=== PATIENT | female | born 1950 | race Caucasian/White ===

== ENCOUNTER 2018-09-18 07:25 | Day surgery (SDC) | payer OTHER, SELFPAY ==
--- NOTE | 2018-09-17 17:46 | POEE_ITS ---
History of Present Illness Chief Complaint: Progressive decreased vision, left eye Narrative: The patient is a 68-year old lady with history of myopia who has noted progressive decreased vision in both eyes at both distance and near. She notes foggy vision and significant difficulty driving and reading. On exami [facility] she was noted to have bilateral nuclear and cortical cataracts with posterior subcapsular cataract of the left eye as well. Visual acuity measured 20/25 in the left eye with her contact lenses, but she had significant glare disability. The option of cataract surgery was offered to the patient and she wished to proceed. NOTE: The Chief Complaint, HPI, Past Medical History, Past Surgical History, Family History, Social History, Medications, and complete Ophthalmic Exam with detailed Assessment and Plan have already been documented in the patient's outpatient ophthalmic record and are not covered again in detail here. PFS Medical History Cortical cataract of left eye (Acute) Nuclear sclerotic cataract of left eye (Acute) Posterior subcapsular age-related cataract of left eye (Acute) Heart murmur (Acute) Hyperlipemia (Acute) Sciatica (Acute) Alcohol abuse (Chronic) Cataract (Chronic) Hypertensive disorder (Chronic) Osteoarthritis (Chronic) Surgical History Hx of colonoscopy (Chronic) Social History Smoking/Tobacco Use Status: Former Tobacco Use Drug use: Never Do you feel safe in your relationship?: Yes Meds Home Medications Medication Instructions Recorded Confirmed Type aspirin [Aspir-81] 81 mg PO Q3D 05/13/17 09/13/18 History cholecalciferol (vitamin D3) 5,000 unit PO DAILY 05/13/17 09/13/18 History coQ10 (ubiquinol) 100 mg PO DAILY 05/13/17 09/13/18 History felodipine 5 mg PO DAILY 05/13/17 09/13/18 History irbesartan [Avapro] 300 mg PO DAILY 05/13/17 09/13/18 History rosuvastatin [Crestor] 5 mg PO QPM 05/13/17 09/13/18 History vitamin B complex 1 ea PO DAILY 05/13/17 09/13/18 History calcium-magnesium 2 tab PO BID 09/12/18 09/13/18 History milk thistle seed extract 400 mg PO DAILY 09/12/18 09/13/18 History omega 1-hdo-rda-fish oil [Fish Oil] 2 cap PO BID 09/12/18 09/13/18 History Allergies Allergy/AdvReac Type Severity Reaction Status Date / Time No Known Allergies Allergy Unverified 09/12/18 12:11 Exam OCULAR EXAM:: Most recent ocular examination revealed corrected visual acuity of 20/25 in each eye. Intraocular pressure is 14 OS, 15 OD. Extraocular motility is normal. Pupils equal, round, and reactive without afferent pupillary defect slit-lamp examination is significant for pupils dilating to 6.5 mm OU. 1-2+ nuclear with 1+ cortical cataract OD. 2+ nuclear with 2-3+ cortical and 1+ posterior subcapsular cataract OS. Dilated funduscopic examination shows disc cupping of 0.25 OD 0.3 OS. The optic nerves are tilted. Optic disc drusen are present OU. The retinal vasculature is normal. There are some macular pigmentary changes OU. Peripheral retina and vitreous is normal OU. BRIGHTNESS ACUITY TESTING (BAT):: Brightness acuity testing of the left eye off is 20/25. Low is 20/30. Medium is 20/50. High is 20/60. Assessment and Plan (1) Posterior subcapsular age-related cataract of left eye: Current visit: No Status: Acute Assessment: Visually significant cataract, left eye. Plan: Cataract extraction with intraocular lens implantation, left eye (2) Nuclear sclerotic cataract of left eye: Current visit: No Status: Acute Assessment: Visually significant cataract, left eye. Plan: Cataract extraction with intraocular lens implantation, left eye (3) Cortical cataract of left eye: Current visit: No Status: Acute Assessment: Visually significant cataract, left eye. Plan: Cataract extraction with intraocular lens implantation, left eye Note: NOTE:: The details of the planned surgery, including the risks, indications,limitations,expectations,outcome and possible complications were explained to the patient. The patient understands the complications including, but not limited to: infection, hemorrhage, posterior dislocation of the lens or nuclear fragments which may require the intervention of a vitreoretinal surgeon, possible loss of the eye, or from anesthetic complications. The patient has been made aware of the option of not having surgery, that vision following surgery may not be equal to that prior to surgery, and that the planned surgery may not achieve the intended results. Following this discussion, which the patient appeared to understand, the patient wishes to proceed with cataract surgery with lens implantation of the affected eye to improve and maximize vision.
--- NOTE | 2018-09-17 17:46 | W.PM.DSUDISC ---
Discharge Plan Disposition Patient Disposition: HOME Condition: Stable Discharge Details Attending Provider: Hardeep Jackman Primary Care Provider: RAKESH BLACK Home Meds and New Rx's Prescriptions: No Action felodipine 2.5 MG tablet extended release 24 hr 5 mg PO DAILY RF: 0 aspirin [Aspir-81] 81 MG tablet,delayed release (DR/EC) 81 mg PO Q3D RF: 0 cholecalciferol (vitamin D3) 5,000 UNIT capsule 5,000 unit PO DAILY RF: 0 irbesartan [Avapro] 300 MG tablet 300 mg PO DAILY RF: 0 vitamin B complex 1 EACH capsule 1 ea PO DAILY RF: 0 rosuvastatin [Crestor] 5 MG tablet 5 mg PO QPM RF: 0 coQ10 (ubiquinol) 100 MG capsule 100 mg PO DAILY RF: 0 calcium-magnesium 300-300 mg Tablet 2 tab PO BID RF: 0 omega 9-qog-tca-fish oil [Fish Oil] 1,000 mg (120 mg-180 mg) Capsule 2 cap PO BID RF: 0 milk thistle seed extract 200 mg Capsule 400 mg PO DAILY RF: 0 Discharge Instructions Stand Alone Forms: Post-op Topical Cataract, Ish Sheffield (DSU) Discharge Orders Discharge Orders: Discharge Order (Routine); Ordered 09/18/18 Ordered By: Hardeep Jackman DS: Diagnosis Discharge Diagnosis (1) Posterior subcapsular age-related cataract of left eye: Status: Resolved (2) Nuclear sclerotic cataract of left eye: Status: Resolved (3) Cortical cataract of left eye: Status: Resolved (4) Status post cataract extraction and insertion of intraocular lens of left eye: Status: Chronic
--- NOTE | 2018-09-17 17:47 | W.PM.OP ---
Date of service: 09/18/18 Time of Service: 09:41 Operative Note PRE-OP DIAGNOSIS: Cataract, left eye POST-OP DIAGNOSIS: same PROCEDURE: Cataract extraction using phacoemulsification with intraocular lens implant, left eye SURGEON: Hardeep Jackman ANESTHESIA: MAC and local (sub-tenon's anesthetic infiltration) PATHOLOGY: none sent COMPLICATIONS: None Patient was transported to: same day Patient's condition: stable Implants: Chapito [employer] Vision / [employer] Tecnis ZCB00 Indications: Progressive decreased vision due to cataract, left eye Procedure Description: CATARACT SURGERY OPERATIVE REPORT PREOPERATIVE DIAGNOSIS: Nuclear/cortical/posterior subcapsular cataract, left eye POSTOPERATIVE DIAGNOSIS: Same OPERATION: Cataract extraction using phacoemulsification with posterior chamber intraocular lens implant, left eye. IOL: IOL Straightener And Aligner/Model: J[employer]J Vision / [employer] Tecnis ZCB00 IOL Power: + 13.50 diopters IOL Serial Number: [id number] Optic Diameter: 6.0mm Haptic/Overall Diameter: 13.0mm PHACO INFO: Onesimo [employer] Solutionsurion Vision System with OZil and Active Fluidics Cumulative Dispersed Energy (CDE): 7.27 seconds SURGEON: Hardeep Jackman MD, FAUSTO ANESTHESIA: Monitored Anesthesia Care (MAC), with local sub-tenon's anesthetic infiltration COMPLICATIONS: None SPECIMENS: None INDICATIONS FOR PROCEDURE: The patient is a 68-year-old lady with history of myopia who has developed symptomatic bilateral nuclear cortical and posterior subcapsular cataracts. She is significantly symptomatic that she desires cataract surgery and attempt to improve and maximize her vision. PROCEDURE: The correct surgical eye was identified and marked as the left eye and the pupil was dilated in the preoperative area using mydriatics and cycloplegics. The dilated pupil size was 7.0 mm. Oral sedation was administered in the form of an Imprimis MKO Melt (midazolam 3mg/ketamine 25mg/ondansetron 2mg). The patient was brought to the operating room where cardiopulmonary monitoring was instituted and surgical time-out was performed, confirming the correct operative eye and IOL power. Topical anesthesia was administered and ophthalmic povidone-iodine 5% was instilled into the conjunctival fornices. Lidocaine gel was applied to the cornea and the tammie-ocular area was prepped with Betadine 10% solution and draped in the usual sterile fashion for intraocular surgery, including an aperture drape. A Tegaderm transparent film dressing was cut in half and used to cover the lashes and lid margins. Care was taken to sequester the lashes and lid margins under the Tegaderm dressing. A lid speculum was placed between the lids of the operative eye and the Santiago-Jory operating microscope was maneuvered into position. Liza scissors were then used to make a conjunctival buttonhole approximately 6mm posterior to the limbus in the inferonasal quadrant. Blunt dissection was carried out to expose bare sclera, and a blunt-tipped sub-tenon?s anesthesia cannula was introduced and passed posteriorly along the globe where non-preserved plain lidocaine was injected into posterior sub-Tenon?s space. A sideport knife was used to make a paracentesis port superior/superiortemporal, and the anterior chamber was filled with Healon GV. A 2.4mm keratome knife was used to create a half-thickness groove at the limbus and then to construct a three-plane near-clear corneal tunnel extending 2.0mm into clear cornea in the temporal position. . A flap was raised on the anterior capsule and capsulorhexis forceps were used to complete a continuous curvilinear capsulorhexis of 5.5 mm. Balanced salt solution was then used to perform cortical cleaving hydrodissection and nuclear hydrodelineation until the lens could be freely rotated within the capsular bag. The lens nucleus was then disassembled and removed within the capsular bag and iris plane using phacoemulsification. Residual cortical material was removed using the 45-degree angled silicone I/A tip with 0.3mm port. The posterior capsule was carefully polished to remove as much residual lens epithelial cells as safely possible. The capsular bag was then inflated and the anterior chamber deepened with viscoelastic. The lens implant described above was inserted into the capsular bag using the [employer] [place] Injector. A Kuglen hook was used to dial the IOL into position. Residual viscoelastic was then removed first from posterior to the IOL, then from the anterior chamber using the I/A handpiece. The lens implant was noted to center nicely within the capsular bag. The incisions were stromally hydrated, and the anterior chamber was reformed using BSS. Then 0.4cc of moxifloxacin 1.5mg/ml were injected into the capsular bag and anterior chamber. The incisions were checked with a Weck spear and found to be secure. Several drops of ophthalmic povidone-iodine 5% were then applied to the eye followed by two drops of Imprimis combination gatifloxacin/dexamethasone solution. The drapes were removed and a clear plastic protective eye shield was placed over the eye. The patient was then returned to [facility] Day Surgery in stable condition.
[2018-09-18 07:45] VITALS: BP 156/82; PULSE 77; RESP 16; TEMP 36.9; O2SAT 99
[2018-09-18] MEDS: Tetracaine 0.5% 4 ML BTL OS ×4 (07:48→09:10)
[2018-09-18] MEDS: Tropicam./Phenyleph. (1/2.5%) 5 ML BTL OS ×3 (07:48→07:58)
[2018-09-18 07:50] VITALS: BP 156/82; PULSE 77; RESP 16; TEMP 36.9; O2SAT 99
[2018-09-18] MEDS: Lidocaine 2% Jelly 6 ML SYR (09:10)
[2018-09-18] MEDS: Povidone-Iodine Ophth 30 ML BTL ×2 (09:10→09:35)
[2018-09-18] MEDS: Balanced Salt Soln.-PLUS 500 ML BAG (09:17)
[2018-09-18] MEDS: Lidocaine 1% Pres-Free 5 ML VIAL (09:17)
[2018-09-18 10:05] VITALS: BP 134/78; PULSE 70; RESP 16; TEMP 36.4; O2SAT 97
== END 2018-09-18 10:15 | disposition home or self-care (01) ==
LOC: SUR 07:26
PROVIDERS: PCP Internal Medicine; Visit Provider Ophthalmology
PROC: (CPT 66984; principal; 2018-09-18 09:30)
DX: H25.812 Combined forms of age-related cataract, left eye (principal); I10 Essential (primary) hypertension
CPT/HCPCS: 66984; V2632

== ENCOUNTER 2018-10-02 06:46 | Day surgery (SDC) | payer OTHER, SELFPAY ==
--- NOTE | 2018-10-01 15:30 | W.PIPPEYE ---
History of Present Illness Chief Complaint: Progressive decreased vision, right eye Narrative: The patient is a 68-year old lady who presented with complaints of progressive decreased vision in both eyes at both distance and near. She notes foggy vision, left eye worse than right and significant difficulty with glare, particularly driving at night. On examination she was noted to have moderate bilateral nuclear cataracts with cortical cataracts as well, left eye worse than right. She underwent cataract surgery in the left eye on . Postoperatively she has regained uncorrected visual acuity of 20/20 in the left eye. She now presents for cataract surgery in the right eye. NOTE: The Chief Complaint, HPI, Past Medical History, Past Surgical History, Family History, Social History, Medications, and complete Ophthalmic Exam with detailed Assessment and Plan have already been documented in the patient's outpatient ophthalmic record and are not covered again in detail here. PFSH Medical History Heart murmur (Acute) Hyperlipemia (Acute) Sciatica (Acute) Alcohol abuse (Chronic) Cataract (Chronic) Hypertensive disorder (Chronic) Osteoarthritis (Chronic) Cortical cataract of left eye (Resolved) Nuclear sclerotic cataract of left eye (Resolved) Posterior subcapsular age-related cataract of left eye (Resolved) Surgical History Status post cataract extraction and insertion of intraocular lens of left eye (Chronic 09/18/18) Hx of colonoscopy (Chronic) Social History Smoking/Tobacco Use Status: Former Tobacco Use Drug use: Never Do you feel safe in your relationship?: Yes Meds Home Medications Medication Instructions Recorded Confirmed Type aspirin [Aspir-81] 81 mg PO Q3D 05/13/17 09/18/18 History cholecalciferol (vitamin D3) 5,000 unit PO DAILY 05/13/17 09/18/18 History coQ10 (ubiquinol) 100 mg PO DAILY 05/13/17 09/18/18 History felodipine 5 mg PO DAILY 05/13/17 09/18/18 History irbesartan [Avapro] 300 mg PO DAILY 05/13/17 09/18/18 History rosuvastatin [Crestor] 5 mg PO QPM 05/13/17 09/18/18 History vitamin B complex 1 ea PO DAILY 05/13/17 09/13/18 History calcium-magnesium 2 tab PO BID 09/12/18 09/18/18 History milk thistle seed extract 400 mg PO DAILY 09/12/18 09/18/18 History omega 6-rpl-waq-fish oil [Fish Oil] 2 cap PO BID 09/12/18 09/18/18 History Allergies Allergy/AdvReac Type Severity Reaction Status Date / Time No Known Allergies Allergy Unverified 09/18/18 07:42 Exam OCULAR EXAM:: Most recent ocular examination is significant for corrected visual acuity of 20/30 in the right eye, 20/20 in the left eye. Intraocular pressure is 15 OU. Extraocular motility is normal. Pupils equal, round, and reactive without afferent pupillary defect slit-lamp examination is significant for pupils dilating to 6.5 mm OU. 1-2+ nuclear with 1+ cortical cataract in the right eye. Well-positioned PCIOL in the left eye with clear posterior capsule. Dilated funduscopic examination reveals tilted optic nerves with drusen. The retinal vasculature is normal. Mild macular pigmentary changes are present OU. Peripheral retina and vitreous is normal OU. BRIGHTNESS ACUITY TESTING (BAT):: Brightness acuity testing of the right eye off is 20/30. Low is 20/25. Medium is 20/25. High is 20/30. Assessment and Plan (1) Nuclear sclerotic cataract of right eye: Current visit: No Status: Acute Assessment: Visually significant cataract, right eye. Plan: Cataract extraction with intraocular lens implantation, right eye (2) Cortical cataract of right eye: Current visit: No Status: Acute Assessment: Visually significant cataract, right eye. Plan: Cataract extraction with intraocular lens implantation, right eye Note: NOTE:: The details of the planned surgery, including the risks, indications,limitations,expectations,outcome and possible complications were explained to the patient. The patient understands the complications including, but not limited to: infection, hemorrhage, posterior dislocation of the lens or nuclear fragments which may require the intervention of a vitreoretinal surgeon, possible loss of the eye, or from anesthetic complications. The patient has been made aware of the option of not having surgery, that vision following surgery may not be equal to that prior to surgery, and that the planned surgery may not achieve the intended results. Following this discussion, which the patient appeared to understand, the patient wishes to proceed with cataract surgery with lens implantation of the affected eye to improve and maximize vision.
[2018-10-02 07:09] VITALS: BP 142/75; PULSE 77; RESP 18; TEMP 36.5; O2SAT 97
[2018-10-02] MEDS: Tropicam./Phenyleph. (1/2.5%) 5 ML BTL OD ×3 (07:18→07:25)
[2018-10-02] MEDS: Tetracaine 0.5% 4 ML BTL OD ×4 (07:18→08:25)
[2018-10-02] MEDS: Povidone-Iodine Ophth 30 ML BTL (08:25)
[2018-10-02] MEDS: Lidocaine 2% Jelly 6 ML SYR (08:25)
[2018-10-02] MEDS: Balanced Salt Soln.-PLUS 500 ML BAG (08:30)
[2018-10-02] MEDS: Lidocaine 1% Pres-Free 5 ML VIAL (08:31)
--- NOTE | 2018-10-02 08:53 | W.PM.DSUDISC ---
Discharge Plan Disposition Patient Disposition: HOME Condition: Stable Discharge Details Attending Provider: Hardeep Jackman Primary Care Provider: RAKESH BLACK Home Meds and New Rx's Prescriptions: No Action felodipine 2.5 MG tablet extended release 24 hr 5 mg PO DAILY RF: 0 aspirin [Aspir-81] 81 MG tablet,delayed release (DR/EC) 81 mg PO Q3D RF: 0 cholecalciferol (vitamin D3) 5,000 UNIT capsule 5,000 unit PO DAILY RF: 0 irbesartan [Avapro] 300 MG tablet 300 mg PO DAILY RF: 0 vitamin B complex 1 EACH capsule 1 ea PO DAILY RF: 0 rosuvastatin [Crestor] 5 MG tablet 5 mg PO QPM RF: 0 coQ10 (ubiquinol) 100 MG capsule 100 mg PO DAILY RF: 0 calcium-magnesium 300-300 mg Tablet 2 tab PO BID RF: 0 omega 9-dwf-dtn-fish oil [Fish Oil] 1,000 mg (120 mg-180 mg) Capsule 2 cap PO BID RF: 0 milk thistle seed extract 200 mg Capsule 400 mg PO DAILY RF: 0 Discharge Instructions Stand Alone Forms: Post-op Topical Cataract, Ish Sheffield ([facility]U) Discharge Orders Discharge Orders: Discharge Order (Routine); Ordered 10/02/18 Ordered By: Hardeep Jackman DS: Diagnosis Discharge Diagnosis (1) Nuclear sclerotic cataract of right eye: Status: Resolved (2) Cortical cataract of right eye: Status: Resolved (3) Status post cataract extraction and insertion of intraocular lens of right eye: Status: Chronic
--- NOTE | 2018-10-02 08:55 | W.PM.OP ---
Date of service: 10/02/18 Time of Service: 08:55 Operative Note PRE-OP DIAGNOSIS: Cataract, right eye PROCEDURE: Cataract extraction using phacoemulsification with intraocular lens implant, right eye SURGEON: Hardeep Jackman ANESTHESIA: MAC and local (sub-tenon's anesthetic infiltration) ESTIMATED BLOOD LOSS: 0 PATHOLOGY: none sent COMPLICATIONS: None Patient was transported to: same day Patient's condition: stable Implants: Chap[employer] and [employer] Vision / [employer] Tecnis ZCB00 intraocular lens Indications: Progressive decreased vision due to cataract, right eye Procedure Description: CATARACT SURGERY OPERATIVE REPORT PREOPERATIVE DIAGNOSIS: Nuclear/cortical cataract, right eye POSTOPERATIVE DIAGNOSIS: Same OPERATION: Cataract extraction using phacoemulsification with posterior chamber intraocular lens implant, right eye. IOL: IOL Generation Technologist/Model: J[employer]J [employer] / [employer] Tecnis ZCB00 IOL Power: + 13.50 diopters IOL Serial Number: [id number] Optic Diameter: 6.0mm Haptic/Overall Diameter: 13.0mm PHACO INFO: Onesimo[employer]un Yun[employer] Vision System with OZil and Active Fluidics Cumulative Dispersed Energy (CDE): 5.57 seconds SURGEON: Hardeep Jackman MD, FAUSTO ANESTHESIA: Monitored Anesthesia Care (MAC), with local sub-tenon's anesthetic infiltration COMPLICATIONS: None SPECIMENS: None INDICATIONS FOR PROCEDURE: The patient is a 68-year-old lady with history of moderate to high myopia who has noted progressive decreased vision in both eyes at both distance and near. She has already undergone cataract surgery in the left eye and is doing well postoperatively. She now presents for cataract surgery in the right eye. PROCEDURE: The correct surgical eye was identified and marked as the right eye and the pupil was dilated in the preoperative area using mydriatics and cycloplegics. The dilated pupil size was 7.0 mm. Oral sedation was administered in the form of an Imprimis MKO Melt (midazolam 3mg/ketamine 25mg/ondansetron 2mg). The patient was brought to the operating room where cardiopulmonary monitoring was instituted and surgical time-out was performed, confirming the correct operative eye and IOL power. Topical anesthesia was administered and ophthalmic povidone-iodine 5% was instilled into the conjunctival fornices. Lidocaine gel was applied to the cornea and the tammie-ocular area was prepped with Betadine 10% solution and draped in the usual sterile fashion for intraocular surgery, including an aperture drape. A Tegaderm transparent film dressing was cut in half and used to cover the lashes and lid margins. Care was taken to sequester the lashes and lid margins under the Tegaderm dressing. A lid speculum was placed between the lids of the operative eye and the Santiago-Jory operating microscope was maneuvered into position. Liza scissors were then used to make a conjunctival buttonhole approximately 6mm posterior to the limbus in the inferonasal quadrant. Blunt dissection was carried out to expose bare sclera, and a blunt-tipped sub-tenon?s anesthesia cannula was introduced and passed posteriorly along the globe where non-preserved plain lidocaine was injected into posterior sub-Tenon?s space. A sideport knife was used to make a paracentesis port inferiortemporally, and the anterior chamber was filled with Healon GV. A 2.4mm keratome knife was used to create a half-thickness groove at the limbus and then to construct a three-plane near-clear corneal tunnel extending 2.0mm into clear cornea in the superiortemporal position. . A flap was raised on the anterior capsule and capsulorhexis forceps were used to complete a continuous curvilinear capsulorhexis of 5.5 mm. Balanced salt solution was then used to perform cortical cleaving hydrodissection and nuclear hydrodelineation until the lens could be freely rotated within the capsular bag. The lens nucleus was then disassembled and removed within the capsular bag and iris plane using phacoemulsification. Residual cortical material was removed using the I/A handpiece. The posterior capsule was carefully polished to remove as much residual lens epithelial cells as safely possible. The capsular bag was then inflated and the anterior chamber deepened with viscoelastic. The lens implant described above was inserted into the capsular bag using the [employer] [place] Injector. A Kuglen hook was used to dial the IOL into position. Residual viscoelastic was then removed first from posterior to the IOL, then from the anterior chamber using the I/A handpiece. The lens implant was noted to center nicely within the capsular bag. The incisions were stromally hydrated, and the anterior chamber was reformed using BSS. Then 0.4cc of moxifloxacin 1.5mg/ml were injected into the capsular bag and anterior chamber. The incisions were checked with a Weck spear and found to be secure. Several drops of ophthalmic povidone-iodine 5% were then applied to the eye followed by two drops of Imprimis combination gatifloxacin/dexamethasone solution. The drapes were removed and a clear plastic protective eye shield was placed over the eye. The patient was then returned to Same Day Surgery in stable condition.
--- NOTE | 2018-10-02 08:58 | ROE_ITS ---
Date of service: 10/02/18 Time of Service: 08:55 Operative Note PRE-OP DIAGNOSIS: Cataract, right eye PROCEDURE: Cataract extraction using phacoemulsification with intraocular lens implant, right eye SURGEON: Hardeep Jackman ANESTHESIA: MAC and local (sub-tenon's anesthetic infiltration) ESTIMATED BLOOD LOSS: 0 PATHOLOGY: none sent COMPLICATIONS: None Patient was transported to: same day Patient's condition: stable Implants: [employer] / [employer] Tecnis ZCB00 intraocular lens Indications: Progressive decreased vision due to cataract, right eye Procedure Description: CATARACT SURGERY OPERATIVE REPORT PREOPERATIVE DIAGNOSIS: Nuclear/cortical cataract, right eye POSTOPERATIVE DIAGNOSIS: Same OPERATION: Cataract extraction using phacoemulsification with posterior chamber intraocular lens implant, right eye. 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: [employer] / [employer] Tecnis ZCB00 IOL Power: + 13.50 diopters IOL Serial Number: [id number] Optic Diameter: 6.0mm Haptic/Overall Diameter: 13.0mm PHACO INFO: OnesimoALICE Appon Vision System with OZil and Active [employer]ics Cumulative Dispersed Energy (CDE): 5.57 seconds SURGEON: Hardeep Jackman MD, FAUSTO ANESTHESIA: Monitored Anesthesia Care (MAC), with local sub-tenon's anesthetic infiltration COMPLICATIONS: None SPECIMENS: None INDICATIONS FOR PROCEDURE: The patient is a 68-year-old lady with history of moderate to high myopia who has noted progressive decreased vision in both eyes at both distance and near. She has already undergone cataract surgery in the left eye and is doing well postoperatively. She now presents for cataract surgery in the right eye. PROCEDURE: The correct surgical eye was identified and marked as the right eye and the pupil was dilated in the preoperative area using mydriatics and cycloplegics. The dilated pupil size was 7.0 mm. Oral sedation was administered in the form of an Imprimis MKO Melt (midazolam 3mg/ketamine 25mg/ondansetron 2mg). The patient was brought to the operating room where cardiopulmonary monitoring was instituted and surgical time-out was performed, confirming the correct operative eye and IOL power. Topical anesthesia was administered and ophthalmic povidone-iodine 5% was instilled into the conjunctival fornices. Lidocaine gel was applied to the cornea and the tammie-ocular area was prepped with Betadine 10% solution and draped in the usual sterile fashion for intraocular surgery, including an aperture drape. A Tegaderm transparent film dressing was cut in half and used to cover the lashes and lid margins. Care was taken to sequester the lashes and lid margins under the Tegaderm dressing. A lid speculum was placed between the lids of the operative eye and the Santiago-Jory operating microscope was maneuvered into position. Liza scissors were then used to make a conjunctival buttonhole approximately 6mm posterior to the limbus in the inferonasal quadrant. Blunt dissection was carried out to expose bare sclera, and a blunt-tipped sub-tenon?s anesthesia cannula was introduced and passed posteriorly along the globe where non- preserved plain lidocaine was injected into posterior sub-Tenon?s space. A sideport knife was used to make a paracentesis port inferiortemporally, and the anterior chamber was filled with Healon GV. A 2.4mm keratome knife was used to create a half-thickness groove at the limbus and then to construct a three-plane near-clear corneal tunnel extending 2.0mm into clear cornea in the superiortemporal position. . A flap was raised on the anterior capsule and capsulorhexis forceps were used to complete a continuous curvilinear capsulorhexis of 5.5 mm. Balanced salt solution was then used to perform cortical cleaving hydrodissection and nuclear hydrodelineation until the lens could be freely rotated within the capsular bag. The lens nucleus was then disassembled and removed within the capsular bag and iris plane using phacoemulsification. Residual cortical material was removed using the I/A handpiece. The posterior capsule was carefully polished to remove as much residual lens epithelial cells as safely possible. The capsular bag was then inflated and the anterior chamber deepened with viscoelastic. The lens implant described above was inserted into the capsular bag using the AUTUMN Show Low Injector. A Kuglen hook was used to dial the IOL into position. Residual viscoelastic was then removed first from posterior to the IOL, then from the anterior chamber using the I/A handpiece. The lens implant was noted to center nicely within the capsular bag. The incisions were stromally hydrated, and the anterior chamber was reformed using BSS. Then 0.4cc of moxifloxacin 1.5mg/ml were injected into the capsular bag and anterior chamber. The incisions were checked with a Weck spear and found to be secure. Several drops of ophthalmic povidone-iodine 5% were then applied to the eye followed by two drops of Imprimis combination gatifloxacin/dexamethasone solution. The drapes were removed and a clear plastic protective eye shield was placed over the eye. The patient was then returned to [facility] Day Surgery in stable condition.
[2018-10-02 09:18] VITALS: BP 143/82; PULSE 78; RESP 18; TEMP 36.9; O2SAT 97
== END 2018-10-02 09:25 | disposition home or self-care (01) ==
PROVIDERS: PCP Internal Medicine; Visit Provider Ophthalmology
PROC: (CPT 66984; principal; 2018-10-02 08:30)
DX: H25.811 Combined forms of age-related cataract, right eye (principal); Z98.42 Cataract extraction status, left eye; Z96.1 Presence of intraocular lens; I10 Essential (primary) hypertension
CPT/HCPCS: 66984; V2632

== ENCOUNTER 2020-11-24 12:35 | Outpatient (REF) | payer OTHER, SELFPAY ==
--- NOTE | 2020-11-24 11:50 | SKI_PTH ---
PATIENT: Bev Morales LOC: [facility] U#:[id number] AGE/SX: 70/F ROOM: RE11/24/[address]: JOE Delarosa : 1950 BED: DIS: 11/24/2020 SPEC #: [id number] RECD: 11/26/20 12:49 STATUS: TAHIRA REKaylin #: [id number] ENRIQUE: 11/24/20 11:[address]: Hans Coleman DEPT: Surgical Specimen RECD BY: Danielle Corona ENTERED: 11/26/20 12:49 SP TYPE: LATISHA DOMINGUEZ DR: Sophia Miller Tissues: 1 - SKIN BIOPSY(SHAVE/PUNCH) 2 - SKIN BIOPSY(SHAVE/PUNCH) Procedures: SKIN LEVEL 4 Comments: [id number]
== END 2020-11-24 12:36 | disposition home or self-care (01) ==
LOC: LBN 12:35
PROVIDERS: PCP Internal Medicine; Visit Provider Physician Assistant
DX: C44.319 Basal cell carcinoma of skin of other parts of face (principal); D04.5 Carcinoma in situ of skin of trunk
CPT/HCPCS: 88305

== ENCOUNTER 2023-03-02 18:57 | Emergency (ER) | payer MEDICARE, SELFPAY ==
[2023-03-02] VITALS (23 sets, daily range): BP systolic 153–181; BP diastolic 57–82; PULSE 67–82; RESP 11–23; TEMP 36.8; O2SAT 94–99
--- NOTE | 2023-03-02 19:15 | RT.EKG_ITS ---
APPROVED REPORT Exam: Resting ECG Reason for Exam: AMS Patient Location: E HR:77 bpm ECG Measurements Heart Rate 77 AXIS WA 177 P 16 QRSd 95 QRS -4 QT 384 T 58 QTc 436 Conclusion Sinus rhythm...normal P axis, V-rate 60- 99 NSR, NL INTERVALS, NL AXIS NO stemi, NO PREV AVAILABLE FOR COMPARISON
--- NOTE | 2023-03-02 20:00 | DI.CT_ITS ---
Exam(s) CT BRAIN NECK CTA EXAM: CT BRAIN NECK CTA CLINICAL HISTORY: brief altered speech resolved. TECHNIQUE: Imaging Protocol: Axial CT angiography was performed with multi-slice acquisition and mu lti-planar and 3D reconstructions. CONTRAST MATERIAL: Intravenous: Omnipaque 350 Contrast volume:85 ml FINDINGS: CT Head W/O and W contrast: Ventricles and Extra axial spaces: Normal in size and morphology for the patient's age. Hemorrhage: None. Cerebral parenchyma: Mild atrophy. Mild white matter changes of small vessel disease. No evidence of infarct or mass. No abnormal enhancement. Midline shift: None. Brainstem/Cerebellum: Normal. Calvarium: Normal. Visualized Paranasal sinuses/Mastoids: Mucosal thickening at the floors of the maxillary sinuses. Soft Tissues: Unremarkable. Enhancement: Normal. CTA Brain W: Internal Carotid Arteries: Petrous: Normal. Cavernous: Normal. Cerebral: Normal. Middle Cerebral Arteries: Right: No aneurysm, occlusion or significant stenosis. Left: No aneurysm, occlusion or significant stenosis. Anterior Cerebral Arteries: Right: No aneurysm, occlusion or significant stenosis. Left: No aneurysm, occlusion or significant stenosis. Posterior cerebral Arteries: Right: No aneurysm, occlusion or significant stenosis. Left: No aneurysm, occlusion or significant stenosis. Vertebral Arteries: Right: No aneurysm, occlusion or significant stenosis. Left: No aneurysm, occlusion or significant stenosis. Basilar Artery: No aneurysm, occlusion or significant stenosis. CTA Neck W: Common Carotid: Right: Calcific plaque at the bulb. No dissection, occlusion or significant stenosis. Left: Plaque at the bulb. No dissection, occlusion or significant stenosis. External Carotid: Right: No dissection, occlusion or significant stenosis. Left: No dissection, occlusion or significant stenosis. Internal Carotid: Right: Mild stenosis secondary to calcific plaque. No dissection, occlusion or significant stenosis. Left: Mild stenosis secondary to calcific plaque. No dissection, occlusion or significant stenosis. Vertebral Artery: Right: No dissection, occlusion or significant stenosis. Left: No dissection, occlusion or significant stenosis. Lung Apices: Normal. Bones: No acute abnormality. Degenerative changes of the cervical spine. Soft Tissues: Normal. IMPRESSION: 1. Normal CTA examination of the [place]. 2. Unremarkable CT Head. 3. Calcific plaque at the common carotid bulb and proximal internal carotid arteries causing mild luh nosis, 25 percent or less. RADIATION DOSE DELIVERED: 1,989.66mGy.cm Total DLP DATA REPOSITORY: All CT scans at this facility are submitted to the National Radiology Data Registry (NRDR) Dose Index Registry (DIR) with the [employer] (ACR). RADIATION OPTIMIZATION: All CT scans at this facility use at least one of these dose optimization te chniques: automated exposure control; mA and/or kV adjustment per patient size (includes targeted exa ms where dose is matched to clinical indication); or iterative reconstruction.
--- NOTE | 2023-03-02 20:21 | ED.GENADUL_ITS ---
Discharge Plan Disposition Patient Disposition: Home Condition: Improving Discharge Details Chief Complaint: AMS/LOC Clinical Impression: TIA (transient ischemic attack) Primary Care Provider: Sophia Miller ED Provider: Hardeep Easley Home Meds and New Rx's Prescriptions: No Action felodipine 2.5 MG tablet extended release 24 hr 5 mg PO DAILY aspirin [Aspir-81] 81 MG tablet,delayed release (DR/EC) 81 mg PO Q OTHER DAY cholecalciferol (vitamin D3) 5,000 UNIT capsule 5,000 unit PO DAILY irbesartan [Avapro] 300 MG tablet 300 mg PO DAILY vitamin B complex 1 EACH capsule 1 ea PO DAILY rosuvastatin [Crestor] 5 MG tablet 5 mg PO QPM coQ10 (ubiquinol) 100 MG capsule 100 mg PO DAILY calcium-magnesium 300-300 mg Tablet 2 tab PO BID omega 3-arp-rzu-fish oil [Fish Oil] 1,000 mg (120 mg-180 mg) Capsule 2 cap PO BID milk thistle seed extract 200 mg Capsule 400 mg PO DAILY Discharge Instructions Instructions: Transient Ischemic Attack (ED) Additional Instructions: Please follow-up with your primary care physician as well as the neurology team. Please return to the emergency department for any worsening symptoms Medical Decision Making 72-year-old female presents after brief word finding issues while speaking with a friend around 4:45 PM, completely resolved. Patient is alert oriented with normal speech, 5 out of 5 strength upper and lower extremities, cranial nerves II through XII intact, no ataxia. Hemodynamically stable. No signs of trauma or intoxication. No signs of infection. Consider TIA lower suspicion for CVA or intracranial hemorrhage low suspicion for encephalitis or meningitis given history and physical. Must also consider stress reaction as patient has been dealing with health decline of her sister. Will obtain CT CTA head neck, basic labs, likely home with close follow-up with neurology. 21: 56 asymptomatic neurologically intact Labs and imaging unremarkable. 25% stenosis of bilateral carotid arteries. Patient will follow-up with primary care physician for outpatient carotid ultrasounds. We will also be given neurology follow-up. Home care instructions and return precautions HPI General Date/Time Provider Initiated Documentation: 03/02/23 19:00 . HPI Narrative: 72-year-old female presents with brief resolved issues speaking, cannot get words out properly while she was speaking to a friend at approximately 4:45 PM this evening. Completely resolved on its own. No headache no chest pain or shortness of breath no history of stroke or TIA in the past. Related Data Home Medications Medication Instructions Recorded Confirmed aspirin 81 mg tablet,delayed 81 mg PO Q OTHER DAY 05/13/17 03/02/23 release (Aspir-) cholecalciferol (vitamin D3) 125 5,000 unit PO DAILY 05/13/17 03/02/23 mcg (5,000 unit) capsule coQ10 (ubiquinol) 100 mg capsule 100 mg PO DAILY 05/13/17 10/02/18 felodipine 2.5 mg tablet,extended 5 mg PO DAILY 05/13/17 03/02/23 release 24 hr irbesartan 300 mg tablet (Avapro) 300 mg PO DAILY 05/13/17 03/02/23 rosuvastatin 5 mg tablet (Crestor) 5 mg PO QPM 05/13/17 10/02/18 vitamin B complex 1 ea PO DAILY 05/13/17 10/02/18 calcium-magnesium 300 mg-300 mg 2 tab PO BID 09/12/18 09/18/18 tablet milk thistle seed extract 200 mg 400 mg PO DAILY 09/12/18 03/02/23 capsule omega 2-dzx-dls-fish oil 1,000 mg 2 cap PO BID 09/12/18 03/02/23 (120 mg-180 mg) capsule (Fish Oil) Allergies Allergy/AdvReac Type Severity Reaction Status Date / Time No Known Allergies Allergy Unverified 03/02/23 19:16 General Stated Complaint: AMS/LOC VISHAL: 2 Review of Systems Narrative: Review of Systems Constitutional: negative Eyes: negative ENT: negative Cardiovascular: negative Respiratory: negative Gastrointestinal: negative : negative Musculoskeletal: negative Skin: negative Neurologic: Speech issues Psych: negative PFSH All Active Problems (Updated 10/02/18 @ 08:54 by Hardeep Jackman MD) TIA (transient ischemic attack) (Acute) Venous stasis dermatitis of right lower extremity (Acute) Neoplasm of unspecified behavior of bone, soft tissue, and skin (Acute) Status post cataract extraction and insertion of intraocular lens of right eye (Chronic 10/02/18) Innocent heart murmur (Chronic) Sciatica (Chronic) Osteoarthritis (Chronic) Diverticula of colon (Chronic) Hyperlipidemia (Chronic) Hypertension (Chronic) Status post cataract extraction and insertion of intraocular lens of left eye (Chronic 09/18/18) Medical History (Updated 03/02/23 @ 21:57 by Hardeep Easley MD) Alcohol abuse 2-4 glasses wine daily Cataract Cortical cataract of left eye Heart murmur Hyperlipemia Hypertensive disorder Nuclear sclerotic cataract of left eye Osteoarthritis Posterior subcapsular age-related cataract of left eye Sciatica multilevel degenerative disc dx Surgical History (Updated 10/02/18 @ 08:54 by Hardeep Jackman MD) Hx of colonoscopy Diverticulosis Social History Smoking/Tobacco Use Status: Former Tobacco Use Smoking risk assessment performed?: Yes Alcohol Intake: current Alcohol Intake frequency: 0-2 drinks per day Alcohol type: wine Drug use: Never Do you feel safe in your relationship?: Yes Exam Narrative Exam Narrative: Physical Examination General: alert, awake, cooperative, resting comfortably, no acute distress HEENT: normocephalic, atraumatic; PERRL, EOM intact, conjunctiva normal; no nasal discharge; moist mucous membranes, oral and pharyngeal mucosa normal, tolerating secretions Neck: supple, trachea midline; full ROM Chest: normal to inspection Respiratory: normal respiratory effort, speaking in full sentences, clear to auscultation, no wheezing, rales or rhonchi Cardiac: regular rate, regular rhythm, S1S2 intact, no murmurs rubs or gallops GI: abdomen soft, non-tender, non-distended; no palpable mass or hepatosplenomegaly Skin: no lesions, rashes or trauma appreciated Neuro: AAOx3, normal speech, moving all extremities; cranial nerves II through XII intact, 5-5 strength upper and lower extremities, no truncal ataxia Psych: Appropriate mood and affect Course Vital Signs Vital signs: Vital Signs Temperature 36.8 C 03/02/23 19:11 Pulse 82 03/02/23 19:11 Respiratory Rate 20 03/02/23 19:11 Blood Pressure 173/82 H 03/02/23 19:11 Pulse Oximetry 99 03/02/23 19:11 Temperature 36.8 C 03/02/23 19:11 Temperature Source Oral 03/02/23 19:11 Pulse 82 03/02/23 19:11 Respiratory Rate 20 03/02/23 19:11 Respiratory Effort Normal 03/02/23 19:16 Blood Pressure 173/82 H 03/02/23 19:11 Blood Pressure Position Sitting 03/02/23 19:11 Pulse Oximetry 99 03/02/23 19:11 Oxygen Delivery Method Room Air 03/02/23 19:11 Oxygen Flow Rate 0 03/02/23 19:11
[2023-03-02 20:22] LABS: Abs Immature Grans 0.04 10^3/uL (0.0-0.06); Absolute Basophil Count 0.07 10^3/uL (0.0-0.2); Absolute Eosinophil Count 0.11 10^3/uL (0.0-0.7); Absolute Lymphocyte Count 1.31 10^3/uL (1.2-3.4); Absolute Monocyte Count 0.87 10^3/uL (0.1-0.8); Absolute Neutrophil Count 4.31 10^3/uL (1.2-6.7); Eosinophils % 1.6; HCT 39.2 % (36.0-46.0); HGB 13.8 g/dL (11.2-15.7); Immature Grans % 0.6; Lymphocytes % 19.5; MCHC 35.2 % (32.0-36.0); MCV 94 fL (80-95); MPV 9.9 fL (8.0-11.0); Neutrophils % 64.3; Platelet Count 199 10^3/uL (130-400); RBC 4.18 10^6/uL (3.93-5.22); RDW 11.5 % (11.7-14.6); RDW-SD 39.5 fL; WBC 6.71 10^3/uL (4.4-10.8)
[2023-03-02 20:44] LABS: ALT 65 U/L (14-59); AST 49 U/L (15-37); Alkaline Phosphatase 80 U/L (46-116); Anion Gap 10.8 mmol/L (3-11); BUN 13 mg/dL (7-18); Bilirubin, Total 0.5 mg/dL (0.2-1.0); CO2 24.2 mmol/L (21.0-32.0); CREATININE 0.8 mg/dL (0.55-1.02); Calcium 9.1 mg/dL (8.5-10.1); Chloride 95 mmol/L (98-107); Estimated GFR 79.22 (mL/min/1.73m2); Glucose 106 mg/dL (74-106); Potassium 3.9 mmol/L (3.5-5.1); Sodium 130 mmol/L (136-145); Total Protein 7.6 g/dL (6.4-8.2)
[2023-03-02] MEDS: Normal Saline - Diluent 50 ML VIAL IJ (20:56)
[2023-03-02] MEDS: Omnipaque 350 MG/ML 100 ML BTL IJ (20:57)
[2023-03-02] MEDS: Normal Saline Flush 10 ML SYR IVP (21:18)
--- NOTE | 2023-03-02 21:36 | DI.VRAD_ITS ---
PROCEDURE INFORMATION: Exam: CTA Head With Contrast, Arteriography Exam date and time: 03/02/2023 9:05 PM Age: 72 years old Clinical indication: Stroke-like symptoms; Speech disturbance; Additional info: Brief altered speech resolved TECHNIQUE: Imaging protocol: Computed tomographic angiography of the head with contrast. Exam focused on the arteries. 3D rendering (Not supervised by radiologist): MIP and/or 3D reconstructed images were created by the technologist. Radiation optimization: All CT scans at this facility use at least one of these dose optimization techniques: automated exposure control; mA and/or kV adjustment per patient size (includes targeted exams where dose is matched to clinical indication); or iterative reconstruction. Contrast material: OMNIPAQUE 350; Contrast volume: 85 ml; Contrast route: INTRAVENOUS (IV); COMPARISON: No relevant prior studies available. FINDINGS: ANTERIOR CIRCULATION: Right internal carotid artery: Intracranial segment is patent with no significant stenosis. No aneurysm. Right middle cerebral artery: No occlusion or significant stenosis. No aneurysm. Right anterior cerebral artery: No occlusion or significant stenosis. No aneurysm. Left internal carotid artery: Intracranial segment is patent with no significant stenosis. No aneurysm. Left middle cerebral artery: No occlusion or significant stenosis. No aneurysm. Left anterior cerebral artery: No occlusion or significant stenosis. No aneurysm. POSTERIOR CIRCULATION: Right vertebral artery: No occlusion or significant stenosis. No aneurysm. Left vertebral artery: No occlusion or significant stenosis. No aneurysm. Basilar artery: No occlusion or significant stenosis. No aneurysm. Right posterior cerebral artery: No occlusion or significant stenosis. No aneurysm. Left posterior cerebral artery: No occlusion or significant stenosis. No aneurysm. Brain: No definite mass, mass effect, or midline shift. Cerebral ventricles: No ventriculomegaly. Bones/joints: Unremarkable. No acute fracture. Soft tissues: Unremarkable. IMPRESSION: No large vessel stenosis or occlusion. PROCEDURE INFORMATION: Exam: CTA Neck With Contrast Exam date and time: 03/02/2023 9:05 PM Age: 72 years old Clinical indication: Stroke-like symptoms; Speech disturbance; Additional info: Brief altered speech resolved TECHNIQUE: Imaging protocol: Computed tomographic angiography of the neck with contrast. 3D rendering (Not supervised by radiologist): MIP and/or 3D reconstructed images were created by the technologist. Radiation optimization: All CT scans at this facility use at least one of these dose optimization techniques: automated exposure control; mA and/or kV adjustment per patient size (includes targeted exams where dose is matched to clinical indication); or iterative reconstruction. Contrast material: OMNIPAQUE 350; Contrast volume: 85 ml; Contrast route: INTRAVENOUS (IV); COMPARISON: No relevant prior studies available. FINDINGS: Right common carotid artery: No stenosis. No dissection or occlusion. Right internal carotid artery: 25% stenosis of right internal carotid artery with calcified plaque. Right external carotid artery: No occlusion or stenosis of the origin. Left common carotid artery: No stenosis. No dissection or occlusion. Left internal carotid artery: Approximately 25% stenosis of left internal carotid artery with calcified plaque. Left external carotid artery: No occlusion or stenosis of the origin. Right vertebral artery: No stenosis. No dissection or occlusion. Left vertebral artery: No stenosis. No dissection or occlusion. Soft tissues: Normal. No significant soft tissue swelling. Bones/joints: No acute fracture. IMPRESSION: 1. Right: Approximately 25% stenosis of right internal carotid artery with calcified plaque. Vertebral artery is patent. 2. Left: Approximately 25% stenosis of left internal carotid artery with calcified plaque. Vertebral artery is patent. REFERENCES: NASCET CRITERIA. The degree of stenosis in the cervical segment of the internal carotid artery is based on NASCET criteria. Normal is no stenosis. Mild is less than 50% stenosis. Moderate is 50-69% stenosis. Severe is 70% to 99% stenosis. Total occlusion is no detectable patent lumen. Dictated and Authenticated by: Ant Julian MD. Ordering:JORGE LUIS Meier MD
== END 2023-03-02 22:15 | disposition home or self-care (01) ==
PROVIDERS: Emergency Provider Emergency Medicine; PCP Internal Medicine
DX: F41.9 Anxiety disorder, unspecified (principal); R41.82 Altered mental status, unspecified; G45.9 Transient cerebral ischemic attack, unspecified; Z79.82 Long term (current) use of aspirin
CPT/HCPCS: 70496; 70498; 80053; 93005; 99285; 85025; 93010; J3490

== ENCOUNTER 2023-03-13 16:43 | Emergency (ER) | payer MEDICARE, SELFPAY ==
[2023-03-13 16:47] VITALS: BP 176/73; PULSE 72; RESP 20; TEMP 36.8; O2SAT 99
--- NOTE | 2023-03-13 17:00 | DI.RAD_ITS ---
Exam(s) XR HAND RT COMPLETE EXAM: XR HAND RT COMPLETE CLINICAL HISTORY: Dorsal trauma, dog bite. TECHNIQUE: 2D digital imaging was performed. COMPARISON: No exams were available for comparison FINDINGS: 3 views No evidence of acute fracture or subluxations. Some dorsal soft tissue swelling noted with air in th e soft tissues but no radiopaque foreign body. There is deformity of the head of the 3rd metacarpal subjacent to this region but this has appearance of a benign exostosis related to degenerative changes in 3rd MCP joint. No erosions evident. There is no radiographic evidence of osteomyelitis. IMPRESSION: Soft tissue injury over dorsal aspect of the hand with some air-gas in the soft tissues. No radiopaq ue foreign body. No fractures. No evidence of osteomyelitis at this time. DATA REPOSITORY: RADIATION DOSE DELIVERED:
--- NOTE | 2023-03-13 17:04 | ED.GENADUL_ITS ---
Discharge Plan Disposition Patient Disposition: Home Discharge Details Clinical Impression: Dog bite of hand, Laceration of hand Primary Care Provider: Sophia Miller ED Provider: Ambrose Santamaria Home Meds and New Rx's Prescriptions: New amoxicillin-pot clavulanate 875-125 mg tablet 1 tab PO Q12H 3 Days Qty: 6 0RF Continued felodipine 2.5 MG tablet extended release 24 hr 5 mg PO DAILY aspirin [Aspir-81] 81 MG tablet,delayed release (DR/EC) 81 mg PO Q OTHER DAY cholecalciferol (vitamin D3) 5,000 UNIT capsule 5,000 unit PO DAILY irbesartan [Avapro] 300 MG tablet 300 mg PO DAILY vitamin B complex 1 EACH capsule 1 ea PO DAILY rosuvastatin [Crestor] 5 MG tablet 5 mg PO QPM coQ10 (ubiquinol) 100 MG capsule 100 mg PO DAILY calcium-magnesium 300-300 mg Tablet 2 tab PO BID omega 3-ath-exa-fish oil [Fish Oil] 1,000 mg (120 mg-180 mg) Capsule 2 cap PO BID milk thistle seed extract 200 mg Capsule 400 mg PO DAILY Discharge Instructions Instructions: Animal Bite (ED), Laceration (ED) Additional Instructions: Watch for any signs of infection and return immediately to the emergency department if these occur. Otherwise keep dressing in place for the next 24-48 hours and then keep wound clean and dry. Return to the emergency department 10 days for suture removal. Discussed tomorrow with your primary care provider your tetanus status and please have them update you if needed. Also it is recommended that you closely monitor wound and have wound recheck approximately in 3 days to make sure that there are no early signs of infection. Please take antibiotics as prescribed. Referrals: Sophia Miller [Primary Care Provider] - 3 days (For wound recheck) Medical Decision Making Patient presenting to the emergency department for chief complaint of dog bite to right hand. Patient reports approximately 30 minutes prior to arrival she was grooming a family member's dog and the dog bit her on her hand. Patient denies any other injury or trauma denies numbness tingling, denies any dysfunction of hand. Physical exam shows a flap laceration to the dorsal aspect of the right hand with visible tendon but no obvious tendon injury as tendon appears intact and distal to injury exam is completely unremarkable with no dysfunction noted. Patient unaware of her tetanus status but states that she is seeing her primary care tomorrow and will check with them but she believes she is up-to-date from her memory. She was informed to have tetanus updated by primary care if she is outside the standard window. We will plan on performing radiological imaging to make sure there is no bony involvement. Given risk versus benefit do feel that patient would benefit from closure if no bony involvement is noted given that she is not immunocompromised beyond age, only single layer closure is needed and injury just occurred 30 minutes prior to arrival. Radiological imaging negative for any bony involvement. Wound was 2-1/2 cm in total length and was visualized to base in bloodless field and showed visible tendons but no tendon damage as suspected from initial exam. Wound was loosely approximated with 2 sutures. Patient started on Augmentin and given a prescription to continue. Patient to follow-up with primary care provider and monitor wound for any signs of infection and return immediately if this occurs. After discussion of diagnosis and plan of care patient has no further needs, questions, or concerns and states clear understanding to return to the emergency department for any worsening symptoms. This documentation was generated using [employer] dictation system, please disregard any oddities of phrase or misspellings. Imaging Data Radiologic Study: Imaging: X-Ray Radiologist's impression: Exam(s) PROCEDURE INFORMATION: Exam: XR Right Hand Exam date and time: 03/13/2023 17:15 Age: 72 years old Clinical indication: Other: Dorsal trauma, dog bite TECHNIQUE: Imaging protocol: Radiologic exam of the right hand. Views: 3 or more views. COMPARISON: No relevant prior studies available. FINDINGS: Bones/joints: The bones are demineralized. Chronic degenerative changes in the wrist and hand. No acute fracture or subluxation. Soft tissues: Soft tissue swelling dorsally. No radiopaque foreign body is seen. IMPRESSION: No acute bony pathology. HPI General Mode of arrival: ambulatory . Date/Time Provider Initiated Documentation: 03/13/23 16:50 . Limitations to Documentation: no limitations . Information obtained by: patient and RN notes reviewed . History of Present Illness 72 year old F presents to the emergency department with the chief complaint of Dog bite dorsal aspect right hand, described as mild and moderate, Quality is described as aching, and is localized to the right and upper extremity. Patient started experiencing this minute(s) (30) and it has been constant. No relieving factors improve symptom(s), No exacerbating factors reported . Patient notes no other symptoms.. Patient did receive the following treatments prior to arrival, none Related Data Home Medications Medication Instructions Recorded Confirmed aspirin 81 mg tablet,delayed 81 mg PO Q OTHER DAY 05/13/17 03/13/23 release (Aspir-) cholecalciferol (vitamin D3) 125 5,000 unit PO DAILY 05/13/17 03/13/23 mcg (5,000 unit) capsule coQ10 (ubiquinol) 100 mg capsule 100 mg PO DAILY 05/13/17 03/13/23 felodipine 2.5 mg tablet,extended 5 mg PO DAILY 05/13/17 03/13/23 release 24 hr irbesartan 300 mg tablet (Avapro) 300 mg PO DAILY 05/13/17 03/13/23 rosuvastatin 5 mg tablet (Crestor) 5 mg PO QPM 05/13/17 03/13/23 vitamin B complex 1 ea PO DAILY 05/13/17 03/13/23 calcium-magnesium 300 mg-300 mg 2 tab PO BID 09/12/18 03/13/23 tablet milk thistle seed extract 200 mg 400 mg PO DAILY 09/12/18 03/13/23 capsule omega 3-elv-fwq-fish oil 1,000 mg 2 cap PO BID 09/12/18 03/13/23 (120 mg-180 mg) capsule (Fish Oil) amoxicillin 875 mg-potassium 1 tab PO Q12H 3 days #6 tabs 03/13/23 clavulanate 125 mg tablet Previous Rx's Medication Instructions Recorded amoxicillin 875 mg-potassium 1 tab PO Q12H 3 days #6 tabs 03/13/23 clavulanate 125 mg tablet Allergies Allergy/AdvReac Type Severity Reaction Status Date / Time No Known Allergies Allergy Unverified 03/13/23 16:50 General Stated Complaint: Laceration VISHAL: 4 Review of Systems Narrative: 6 systems reviewed and unremarkable except what is marked below. Musculoskeletal Musculoskeletal: Reports as per HPI, Denies arthralgias, Denies limited range of motion, Denies numbness, Denies stiffness and Denies tingling Integumentary/Breasts Skin/Breast: Reports as per HPI and Reports wounds Neurologic Neurologic: Denies numbness and Denies tingling PFSH All Active Problems TIA (transient ischemic attack) (Acute) Dog bite of hand (Acute) Laceration of hand (Acute) Venous stasis dermatitis of right lower extremity (Acute) Neoplasm of unspecified behavior of bone, soft tissue, and skin (Acute) Status post cataract extraction and insertion of intraocular lens of right eye (Chronic 10/02/18) Innocent heart murmur (Chronic) Sciatica (Chronic) Osteoarthritis (Chronic) Diverticula of colon (Chronic) Hyperlipidemia (Chronic) Hypertension (Chronic) Status post cataract extraction and insertion of intraocular lens of left eye (Chronic 09/18/18) Medical History Alcohol abuse 2-4 glasses wine daily Cataract Cortical cataract of left eye Heart murmur Hyperlipemia Hypertensive disorder Nuclear sclerotic cataract of left eye Osteoarthritis Posterior subcapsular age-related cataract of left eye Sciatica multilevel degenerative disc dx Surgical History Hx of colonoscopy Diverticulosis Social History Smoking/Tobacco Use Status: Former Tobacco Use Smoking risk assessment performed?: Yes Alcohol Intake: current Alcohol Intake frequency: 0-2 drinks per day Alcohol type: wine Drug use: Never Do you feel safe in your relationship?: Yes Exam Const General: cooperative, no acute distress and not ill appearing Orientation: alert, awake and oriented x3 HENMT Mouth: moist mucous membranes Resp Effort & Inspection: normal respiratory effort, able to speak in complete sentences and no respiratory distress Cardio Rate: regular rate Rhythm: regular rhythm Skin General skin exam: no rashes or lesions noted Neuro General: patient alert, patient awake, patient oriented x3, moves all extremities and no focal motor deficits Sensory Exam: no sensory deficits noted Extrem General: normal exam except as noted Right upper extremity: hand Details: neuromotor exam normal, neurosensory exam normal, tendon exam normal, normal ROM of fingers and laceration dorsal hand central Details: irregular, flap, actively bleeding, involving subcutaneous tissue (Visible tendon), with motor nerve function intact and with sensation intact; not with foreign body present; no tenderness and no crepitus Course Vital Signs Vital signs: Vital Signs Temperature 36.8 C 03/13/23 16:47 Pulse 72 03/13/23 16:47 Respiratory Rate 20 03/13/23 16:47 Blood Pressure 176/73 H 03/13/23 16:47 Pulse Oximetry 99 03/13/23 16:47 Temperature 36.8 C 03/13/23 16:47 Pulse 72 03/13/23 16:47 Respiratory Rate 20 03/13/23 16:47 Respiratory Effort Normal 03/13/23 16:50 Blood Pressure 176/73 H 03/13/23 16:47 Pulse Oximetry 99 03/13/23 16:47 Oxygen Delivery Method Room Air 03/13/23 16:47 Oxygen Flow Rate 0 03/13/23 16:47 Pain Level 2 03/13/23 16:47 Procedures Laceration Laceration 1: Site: hand Side (If applicable): right Size (cm): 2.5 Description: flap and irregular Depth: simple, single layer Local Anesthetic: Lidocaine 1% Amount of anesthesia used (mL): 3 Pre-repair: wound explored, irrigated extensively (500ml) and deep structures intact Skin layer closed with: other (prolene) Size (cm): 4-0 Number of sutures: 2 Technique: simple, interrupted
--- NOTE | 2023-03-13 17:40 | DI.VRAD_ITS ---
PROCEDURE INFORMATION: Exam: XR Right Hand Exam date and time: 03/13/2023 17:15 Age: 72 years old Clinical indication: Other: Dorsal trauma, dog bite TECHNIQUE: Imaging protocol: Radiologic exam of the right hand. Views: 3 or more views. COMPARISON: No relevant prior studies available. FINDINGS: Bones/joints: The bones are demineralized. Chronic degenerative changes in the wrist and hand. No acute fracture or subluxation. Soft tissues: Soft tissue swelling dorsally. No radiopaque foreign body is seen. IMPRESSION: No acute bony pathology. Dictated and Authenticated by: Kelli Voss MD. Ordering:EVONNE Boggs MD
[2023-03-13] MEDS: Amox. 875/Clav. 125, 2 TABS/BTL 1 TAB PO (18:29)
== END 2023-03-13 18:32 | disposition home or self-care (01) ==
PROVIDERS: Emergency Provider Nurse Practitioner Family; PCP Internal Medicine
DX: S61.411A Laceration without foreign body of right hand, initial encounter (principal); I10 Essential (primary) hypertension; Z79.82 Long term (current) use of aspirin; W54.0XXA Bitten by dog, initial encounter; Y93.K3 Activity, grooming and shearing an animal; Y92.018 Other place in single-family (private) house as the place of occurrence of the external cause; Y99.9 Unspecified external cause status
CPT/HCPCS: 12001; 99283; 73130

== ENCOUNTER → 2023-03-24 13:53 | Outpatient (BNVA) | payer MEDICARE, OTHER, SELFPAY | PROVIDERS: PCP Internal Medicine; Referring Provider Internal Medicine; Visit Provider Psychiatry & Neurology Neurology | DX: I65.21 Occlusion and stenosis of right carotid artery (principal); Z86.73 Personal history of transient ischemic attack (TIA), and cerebral infarction without residual deficits; I10 Essential (primary) hypertension | CPT/HCPCS: 99215 ==

== ENCOUNTER → 2023-04-26 00:36 | Outpatient (CLI) | payer MEDICARE, SELFPAY ==
--- NOTE | 2023-04-26 08:00 | DI.MRI_ITS ---
Exam(s) MR BRAIN WO EXAM: MR BRAIN WO CLINICAL HISTORY: transient aphasia; Left handed,TIA,G45.9 TECHNIQUE: Multiplanar multisequence MRI of the brain was performed. COMPARISON: CT CT BRAIN NECK CTA from 03/02/2023 FINDINGS: CEREBRAL PARENCHYMA: There is no evidence of intracranial hemorrhage, mass effect, or shift of midline structures. There are no extra-axial fluid collections. Ventricles are not enlarged or shifted. No evidence of cerebe llar tonsillar ectopia. There is symmetrical involutional change/atrophy, most prominent in the fron timi lobes. There is no significant focal signal abnormality in the cerebellar hemispheres. Small focus of incre ased signal noted in the right-side of the johan measuring 3 mm. No abnormal signal in the midbrain a nd thalami. There is relatively symmetrical Namrata and supra ventricular white matter signal abnormali ty bright on FLAIR which is not associated with hemorrhage, surrounding edema, nor restricted diffusi on. SWI reveals no evidence of microhemorrhages. There is no significant focal signal abnormality evident on diffusion imaging to suggest acute ischem ic event. PITUITARY GLAND: No mass nor parasellar abnormality. No obvious abnormality in the cavernous sinuses. FLOW VOIDS: The expected flow void are noted. No evidence of obvious aneurysm nor obvious vascular ma lformation. PARANASAL SINUSES: There is mucosal thickening both maxillary sinuses, not associated with acute flui d levels. Sphenoid and frontal sinuses are clear. Mastoid air cells clear. ORBITS: No obvious findings. IMPRESSION: Findings are consistent with chronic small vessel ischemic changes, relatively symmetrical. Also sym metrical atrophy, including bifrontal. Small focus of signal abnormality in the right-side of the po ns is also probably nonacute ischemic. There is no restricted diffusion evident on DWI. No evidence of hemorrhage. DATA REPOSITORY:
== END ==
PROVIDERS: PCP Internal Medicine; Visit Provider Psychiatry & Neurology Neurology
DX: I67.82 Cerebral ischemia
CPT/HCPCS: 70551

== ENCOUNTER → 2023-05-05 14:08 | Outpatient (BNVA) | payer MEDICARE, SELFPAY | PROVIDERS: PCP Internal Medicine; Referring Provider Internal Medicine; Visit Provider Psychiatry & Neurology Neurology | DX: I65.21 Occlusion and stenosis of right carotid artery (principal); Z86.73 Personal history of transient ischemic attack (TIA), and cerebral infarction without residual deficits; I10 Essential (primary) hypertension | CPT/HCPCS: 99214 ==

== ENCOUNTER → 2023-06-06 01:15 | Outpatient (CLI) | payer MEDICARE, SELFPAY | PROVIDERS: PCP Internal Medicine; Visit Provider Psychiatry & Neurology Neurology | DX: G45.9 Transient cerebral ischemic attack, unspecified (principal); I63.9 Cerebral infarction, unspecified | CPT/HCPCS: 93306 ==

== ENCOUNTER 2024-01-06 18:01 | Outpatient (REF) | payer MEDICARE, SELFPAY ==
--- NOTE | 2024-01-06 15:05 | SKI_PTH ---
PATIENT: Bev Morales LOC: [facility] U#:[id number] AGE/SX: 73/F ROOM: RE01/06/[address]: Octavio Nunn DO : 1950 BED: DIS: 01/06/2024 SPEC #: [id number] RECD: 01/09/24 12:32 STATUS: TAHIRA REKaylin #: [id number] ENRIQUE: 01/06/24 15:[address]: Octavio Nunn DEPT: Surgical Specimen RECD BY: Danielle Corona ENTERED: 01/09/24 12:32 SP TYPE: SKI OTHR DR: Sophia Miller Tissues: 1 - SKIN BIOPSY(SHAVE/PUNCH) Procedures: SKIN LEVEL 4 Comments: [id number]
== END 2024-01-06 18:02 | disposition home or self-care (01) ==
LOC: LBN 18:01
PROVIDERS: PCP Internal Medicine; Visit Provider Otolaryngology Otolaryngology/Facial Plastic Surgery
DX: L82.1 Other seborrheic keratosis (principal)
CPT/HCPCS: 88305

== ENCOUNTER 2024-01-09 14:41 | Emergency (ER) | payer MEDICARE, SELFPAY ==
--- NOTE | 2024-01-09 15:39 | NUR.NOTE ---
Nursing Note: Received call from access that patient left without being seen
== END 2024-01-09 15:39 | disposition left against medical advice (07) ==
PROVIDERS: PCP Internal Medicine
DX: Z53.21 Procedure and treatment not carried out due to patient leaving prior to being seen by health care provider (principal)

== ENCOUNTER 2024-03-06 01:12 | Outpatient (CLI) | payer MEDICARE, SELFPAY ==
--- NOTE | 2024-03-06 06:45 | DI.US_ITS ---
Exam(s) US CAROTID EXAM: US CAROTID CLINICAL HISTORY: R Carotid stenosis,I65.21. TECHNIQUE: Ultrasound carotids performed using grayscale, color-flow, and spectral Doppler imaging. COMPARISON: CT CT BRAIN NECK CTA from 03/02/2023 FINDINGS: RIGHT common CAROTID ARTERY: Plaque: Minimal calcific plaque. Velocity elevation: None. Right internal carotid artery: Small focus of calcific plaque at origin. Mild scattered calcific beatriz que in the mid and distal portions. No significant stenosis. Right external carotid artery: Elevated systolic velocity but no visible stenosis or focal plaque. LEFT common CAROTID ARTERY: Plaque: Mild scattered calcific plaque. Intimal thickening distally. Velocity elevation: Mild systolic velocity elevation. Left internal carotid artery: Calcification at bulb. Left external carotid artery: Calcification at origin. Mildly elevated systolic velocity and mild is a bowl stenosis. VERTEBRAL ARTERIES: Antegrade flow. IMPRESSION: Multifocal calcific plaque. No evidence for hemodynamically significant internal carotid stenosis. Criteria for Carotid Stenosis: Normal: ICA PSV <125 cm/s no plaque or intimal thickening is visible. <50% stenosis: ICA PSV <125 cm/s and plaque or intimal thickening is visible. 50-69% stenosis: ICA PSV is 125-250 cm/s and plaque is visible. >70% stenosis to near occlusion: ICA PSV >250 cm/s with visible plaque and luminal narrowing. DATA REPOSITORY:
== END 2024-03-06 01:32 ==
LOC: DI 01:12
PROVIDERS: PCP Internal Medicine; Visit Provider Psychiatry & Neurology Neurology
DX: I65.21 Occlusion and stenosis of right carotid artery (principal)
CPT/HCPCS: 93880

== ENCOUNTER 2024-06-14 13:57 | Emergency (ER) | payer MEDICARE, SELFPAY ==
[2024-06-14 14:09] VITALS: BP 159/84; PULSE 81; RESP 16; TEMP 36.6; O2SAT 97
--- NOTE | 2024-06-14 14:46 | W.ED.GENAD ---
Discharge Plan Disposition Patient Disposition: Home Condition: Stable Discharge Details Clinical Impression: Acute UTI, Closed T11 fracture, Closed T12 fracture, Fall Primary Care Provider: Sophia Miller ED Provider: Liz Antoine Home Meds and New Rx's Prescriptions: New lidocaine 5 % adhesive patch,medicated 1 patch topical DAILY Qty: 15 0RF Rx Instructions: leave on most painful area for up to 12 hrs cephalexin 500 mg capsule 500 mg PO BID 10 Days Qty: 20 0RF Rx Instructions: Take 1 capsule by mouth twice daily for the next 10 days Continued Adult 50 Plus Probiotic 4 billion cell capsule 4,000 mmu cells PO DAILY Rx Instructions: administer with a meal felodipine 2.5 MG tablet extended release 24 hr 5 mg PO DAILY aspirin [Aspir-81] 81 MG tablet,delayed release (DR/EC) 81 mg PO Q OTHER DAY cholecalciferol (vitamin D3) 5,000 UNIT capsule 5,000 unit PO DAILY irbesartan [Avapro] 300 MG tablet 300 mg PO DAILY omega 5-tab-bjb-fish oil [Fish Oil] 1,000 mg (120 mg-180 mg) Capsule 2 cap PO BID milk thistle seed extract 200 mg Capsule 400 mg PO DAILY Discharge Instructions Instructions: Urinary Tract Infection, Adult ED, Vertebral Compression Fracture ED, Preventing Falls ED Additional Instructions: It appears you have a endplate T11 and T12 fracture this probably occurred when you fell. This will most likely heal on its own and does not require any further treatment. However please follow-up with your primary care provider or orthopedics if needed. You also have evidence of a urinary tract infection. Please take the antibiotic with yogurt or probiotic as directed. You have an old L1 compression fracture. Alternate ice and heat, use the lidocaine patches as directed. Please take Tylenol or Ibuprofen with food every 4-6 hours as needed for pain and swelling. Return to the ER for any loss of bowel or bladder control, weakness numbness tingling in your rectal area or legs. Follow up with primary care provider in 3-5 days. Return to ED sooner if any worsening or concerns. Thank you for allowing us to care for you today. Referrals: Rosendo Montesinos MD [ [facility] STAFF PHYSICIAN] - 1 week (T11 and T12 endplate fractures) Sophia Miller [Primary Care Provider] - 5 days Discharge Data Discharge Date/Time-TO BE ENTERED AT DEPARTURE: 06/14/24 17:26 HPI <Alisia Rivers - Last Filed: 06/14/24 16:03> General Date/Time Provider Initiated Documentation: 06/14/24 14:42. HPI Narrative: Bev is a 74year old female who presents to the emergency department today for evaluation of low back pain s/p fall. Reports that she slipped on linoleum when yak tracks, causing her to fall onto her bottom directly onto the floor. She denies hitting her head or other injury. She reports that the pain started across her mid back that evening. Back pain is worsened with movement and laying flat on her back or stomach. she has had 3 days of constipation with decreased appetite, she attributes this to taking Tylenol and NSAID. Denies associated fever/chills, chest pain, difficulty breathing, saddle anesthesia, change in bladder function, weakness/numbness in legs. Past medical history is significant for compression fracture from previous fall, osteoarthritis, diverticulitis, hypertension, hyperlipidemia. Denies history of spinal surgeries or instrumentation. Physical exam reassuring. No T-spine or L-spine step-off/tenderness/deformity with palpation. Unable to elicit paraspinal tenderness with palpation. No ecchymosis or rashes noted. Abdomen is softly distended, tender to palpation in the right upper quadrant. Slightly hyperactive bowel sounds. 5 out of 5 muscle strength to upper and lower extremities. Rectal exam performed with FELICIA Bazzi at bedside, sphincter tone intact. No fecal impaction noted D/dx includes but is not limited to: Vertebral fracture, diverticulitis, pancreatitis, cholecystitis, constipation I independently interpreted the following tests: CBC reassuring. CMP notable for hyponatremia, sodium 129 with hypochloremia chloride 93. Lipase 33. CT pending. Handoff report given to Liz Antoine LIBRARY SERVICES ASSISTANT, evening OBNILLA. Related Data Home Medications ?Medication ?Instructions ?Recorded ?Confirmed aspirin 81 mg tablet,delayed 81 mg PO Q OTHER DAY 05/13/17 06/14/24 release (Aspir-) cholecalciferol (vitamin D3) 125 5,000 unit PO DAILY 05/13/17 06/14/24 mcg (5,000 unit) capsule felodipine 2.5 mg tablet,extended 5 mg PO DAILY 05/13/17 06/14/24 release 24 hr irbesartan 300 mg tablet (Avapro) 300 mg PO DAILY 05/13/17 06/14/24 milk thistle seed extract 200 mg 400 mg PO DAILY 09/12/18 06/14/24 capsule omega 2-xnt-crg-fish oil 1,000 mg 2 cap PO BID 09/12/18 06/14/24 (120 mg-180 mg) capsule (Fish Oil) lactobacillus combination no.9 4 4,000 mmu cells PO DAILY 03/24/23 06/14/24 billion cell capsule (Adult 50 Plus Probiotic) cephalexin 500 mg capsule 500 mg PO BID UTI 10 days #20 caps 06/14/24 lidocaine 5 % topical patch 1 patch topical DAILY #15 ea 06/14/24 Previous Rx's ?Medication ?Instructions ?Recorded cephalexin 500 mg capsule 500 mg PO BID UTI 10 days #20 caps 06/14/24 lidocaine 5 % topical patch 1 patch topical DAILY #15 ea 06/14/24 Allergies Allergy/AdvReac Type Severity Reaction Status Date / Time adhesive tape Allergy Intermediate rash Unverified 06/14/24 14:11 General Stated Complaint: Nk/Back Pain VISHAL: 4 Review of Systems <Alisia Rivers - Last Filed: 06/14/24 16:03> Narrative: See HPI Exam <Alisia Rivers - Last Filed: 06/14/24 16:03> Const General: cooperative, healthy appearing, well developed and well groomed Orientation: alert and oriented x3 Cardio Rate: regular rate Rhythm: regular rhythm GI Inspection: normal to inspection, distended (Softly distended), no visible herniation and no visible pulsation Palpation: soft, not firm, no guarding, not rigid and tender in the RUQ Auscultation: hyperactive bowel sounds Rectal Exam - female: visual inspection normal, normal sphincter tone, No fecal impaction and No hemorrhoids Other: Bruise noted at gluteal cleft Back/Spine/Pelvis Back: no CVA tenderness Thoracic/Lumbar Spine: thoracic and lumbar spine normal to inspection, No paraspinal tenderness and No thoraco-lumbar spasm Back/spine/pelvis image: 1. Ecchymosis Skin General skin exam: no rashes or lesions noted Neuro General: patient alert, patient oriented x3, gait normal, tone normal, moves all extremities and no focal motor deficits Cognition: normal cognition Speech: speech normal Gait: normal gait Motor: muscle tone normal throughout and strength 5/5 throughout Sensory Exam: no sensory deficits noted Course <Alisia Forest Petra Rivers - Last Filed: 06/14/24 16:03> Vital Signs Vital signs: Vital Signs Temperature 36.6 C 06/14/24 14:09 Pulse 81 06/14/24 14:09 Respiratory Rate 16 06/14/24 14:09 Blood Pressure 159/84 H 06/14/24 14:09 Pulse Oximetry 97 06/14/24 14:09 Temperature 36.6 C 06/14/24 14:09 Pulse 81 06/14/24 14:09 Respiratory Rate 16 06/14/24 14:09 Blood Pressure 159/84 H 06/14/24 14:09 Pulse Oximetry 97 06/14/24 14:09 Pain Level 5 06/14/24 14:09 Medical Decision Making <Alisia Garg Petra Rivers - Last Filed: 06/14/24 16:03> Quality:SDOH Health Related Social Needs: No Data to Display <Liz Antoine NP - Last Filed: 06/14/24 21:44> 1600: SJ: Care assumed from provider (Alisia Lambert NP) Please see their initial HPI, PE, and documentation. Discussed patient details and case and pending workup and disposition. Patient is hemodynamically stable, and alert and oriented. At the time of signout awaiting labs and CT T-spine and abdomen pelvis. Patient is a 74-year-old female who fell 4 days ago and is complaining of some abdominal pain and bloating and constipation. CBC shows no leukocytosis, neutrophils 6.2, sodium is 129 chloride 93 which is low, lipase within normal limits, urinalysis shows positive nitrites moderate leukocytes. Patient's records show that she was on cephalexin 3 days in December. Awaiting CT results. CT abdomen pelvis shows no evidence of obstruction, diverticulosis with no diverticulitis, small 1.5 cm possible hemangioma in the right lobe of the liver noted. An old L1 compression fracture noted. Degenerative changes. Giving patient 1 g of ceftriaxone IV piggyback, will send patient home with cephalexin 500 mg twice daily with reevaluation with PCP. Patient given 6 or 50 mg of Tylenol p.o. And lidocaine patch. CT of T spine shows acute fracture of T11 and possibly acute fracture of T12 on the endplates. No subluxation or height loss of the vertebral body. Will send patient out with lidocaine patches, instructed on Tylenol ibuprofen and ice. Discussed strict return instructions. Also give cephalexin for UTI. Patient discharged ambulatory here in the department discussed results she verbalized understanding discussed strict return instructions to return if any loss of bowel or bladder control, weakness numbness or tingling in her legs or any concerns. This text was generated using [employer] system, please disregard any oddities of phrase or misspellings. Medical Records Medical records reviewed: Yes I reviewed the patient's medical records. Imaging Data Radiologic Study: Imaging: CT Scan Radiologist's impression: CT abd Pelvis W IMPRESSION: 1. No acute abdominal or pelvic process. 2. 1.5 cm enhancing nodule in the right lobe of the liver. This may represent a hemangioma. Nonemergent CT or MRI of the liver using the hemangioma protocol is recommended for further characterization. 3. Old L1 compression deformity. Radiologic Study #2: Imaging: CT Scan Radiologist's impression: Exam(s) a CT:CT thoracic spine wo Exam(s) CT THORACIC SPINE WO EXAM: CT THORACIC SPINE WO CLINICAL HISTORY: mid back pain s/o fall w constipation. TECHNIQUE: Imaging Protocol: Axial computed tomography images with coronal and sagittal reformatted images were created and reviewed. COMPARISON: CT ABD PELVIS WITH CONTRAST from 07/14/2011 FINDINGS: Bones: There is disruption of the cortex of the inferior endplate of T11 and the superior endplate of T12 suspicious for fractures. No significant loss of height of the vertebral bodies is seen. There is an old L1 compression deformity. No other findings to suggest an acute fracture seen. No acute subluxation is seen. The alignment of the spine is normal including the cervicothoracic junction. Age-appropriate degenerative changes are present throughout the thoracic spine. Soft tissues: The soft tissues of the chest are unremarkable. No large disk herniations are identified. IMPRESSION: 1. Acute fracture involving the inferior endplate of T11 without significant loss of the height of the vertebral body. 2. Findings suspicious for a fracture of the superior endplate of T12 without significant loss of height of the vertebral body. Lab Data Lab results reviewed: Yes I reviewed the patient's lab results. Labs: 12/26/24 15:36 Urine - Reflex from Ua Urine Culture - Pending Laboratory Tests Range/Units 06/14/24 06/14/24 15:30 15:36 WBC (4.4-10.8) 10^3/uL 9.49 RBC (3.93-5.22) 10^6/uL 4.25 Hgb (11.2-15.7) g/dL 14.1 Hct (36.0-46.0) % 39.9 MCV (80-95) fL 94 MCH (27.0-33.0) pg 33.2 H MCHC (32.0-36.0) % 35.3 RDW (11.7-14.6) % 11.5 L Plt Count (130-400) 10^3/uL 212 MPV (8.0-11.0) fL 8.9 Immature Gran % % 0.5 Neutrophils % % 71.9 Lymphocytes % % 14.1 Monocytes % % 11.5 Eosinophils % % 1.4 Basophils % % 0.6 Nucleated RBC % (0.0-0.3) % 0.0 Absolute Neutrophils (1.2-6.7) 10^3/uL 6.82 H Absolute Lymphocytes (1.2-3.4) 10^3/uL 1.34 Absolute Monocytes (0.1-0.8) 10^3/uL 1.09 H Absolute Eosinophils (0.0-0.7) 10^3/uL 0.13 Absolute Basophils (0.0-0.2) 10^3/uL 0.06 Sodium (136-145) mmol/L 129 L Potassium (3.5-5.1) mmol/L 4.3 Chloride (98-107) mmol/L 93 L Carbon Dioxide (21.0-32.0) mmol/L 28.7 Anion Gap (3-11) mmol/L 7.3 BUN (7-18) mg/dL 10 Creatinine (0.55-1.02) mg/dL 0.7 Est GFR (CKD-EPI 2020) (mL/min/1.73m2) 91.83 Glucose (74-106) mg/dL 95 Calcium (8.5-10.1) mg/dL 9.1 Total Bilirubin (0.2-1.0) mg/dL 0.63 AST (15-37) U/L 26 ALT (14-59) U/L 37 Alkaline Phosphatase (46-116) U/L 90 Total Protein (6.4-8.2) g/dL 7.6 Albumin (3.4-5.0) g/dL 3.9 Lipase (<78) U/L 33 Urine Color (Yellow) Yellow Urine Clarity (Clear) Sl Cloudy Urine pH (5-8) 6.5 Ur Specific Breese (1.005-1.025) 1.015 Urine Protein (Neg-Trace) mg/dL 30 H Urine Ketones (Negative) mg/dL Trace H Urine Blood (Negative) Negative Urine Nitrite (Negative) Positive H Urine Bilirubin (Negative) Negative Urine Urobilinogen (Up to 0.2) mg/dL 0.2 Ur Leukocyte Esterase (Negative) Moderate H Urine RBC (0-2) HPF Negative Urine WBC (0-5) HPF 20-50 H Ur Epithelial Cells (Negative) HPF Rare Urine Crystals (Negative) HPF Negative Urine Bacteria (Negative) HPF Many Urine Casts (Negative) LPF Negative Urine Mucus (Negative) Negative Ur Culture Indicated? Yes Urine Glucose (Negative) mg/dL Negative PFSH <Alisia Forest GrimesPetraloc Rivers - Last Filed: 06/14/24 16:03> All Active Problems Fall (Acute) Closed T12 fracture (Acute) Closed T11 fracture (Acute) Acute UTI (Acute) Carotid stenosis, right (Acute) Venous stasis dermatitis of right lower extremity (Acute) Neoplasm of unspecified behavior of bone, soft tissue, and skin (Acute) Status post cataract extraction and insertion of intraocular lens of right eye (Chronic 10/02/18) Innocent heart murmur (Chronic) Sciatica (Chronic) Osteoarthritis (Chronic) Diverticula of colon (Chronic) Hyperlipidemia (Chronic) Hypertension (Chronic) Status post cataract extraction and insertion of intraocular lens of left eye (Chronic 09/18/18) Medical History Cortical cataract of left eye Nuclear sclerotic cataract of left eye Posterior subcapsular age-related cataract of left eye Hypertensive disorder Hyperlipemia Heart murmur Cataract Sciatica multilevel degenerative disc dx Alcohol abuse 2-4 glasses wine daily Osteoarthritis Surgical History Hx of colonoscopy Diverticulosis Family History Father Heart disease Social History Smoking/Tobacco Use Status: Former Tobacco Use Smoking risk assessment performed?: Yes Alcohol Intake: current Alcohol Intake frequency: 3 or more drinks per day Alcohol type: wine Drug use: Never Household members: none 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
[2024-06-14 15:40] LABS: Abs Immature Grans 0.05 10^3/uL (0.0-0.06); Absolute Basophil Count 0.06 10^3/uL (0.0-0.2); Absolute Eosinophil Count 0.13 10^3/uL (0.0-0.7); Absolute Lymphocyte Count 1.34 10^3/uL (1.2-3.4); Absolute Monocyte Count 1.09 10^3/uL (0.1-0.8); Absolute Neutrophil Count 6.82 10^3/uL (1.2-6.7); Basophils % 0.6 %; Eosinophils % 1.4 %; HCT 39.9 % (36.0-46.0); HGB 14.1 g/dL (11.2-15.7); Immature Grans % 0.5 %; Lymphocytes % 14.1 %; MCH 33.2 pg (27.0-33.0); MCHC 35.3 % (32.0-36.0); MCV 94 fL (80-95); MPV 8.9 fL (8.0-11.0); Monocytes % 11.5 %; Neutrophils % 71.9 %; Platelet Count 212 10^3/uL (130-400); RBC 4.25 10^6/uL (3.93-5.22); RDW 11.5 % (11.7-14.6); RDW-SD 39.1 fL; WBC 9.49 10^3/uL (4.4-10.8)
[2024-06-14 15:52] LABS: ALT 37 U/L (14-59); AST 26 U/L (15-37); Albumin 3.9 g/dL (3.4-5.0); Alkaline Phosphatase 90 U/L (46-116); Anion Gap 7.3 mmol/L (3-11); BUN 10 mg/dL (7-18); Bilirubin, Total 0.63 mg/dL (0.2-1.0); CO2 28.7 mmol/L (21.0-32.0); CREATININE 0.7 mg/dL (0.55-1.02); Calcium 9.1 mg/dL (8.5-10.1); Chloride 93 mmol/L (98-107); Estimated GFR 91.83 (mL/min/1.73m2); Glucose 95 mg/dL (74-106); Lipase 33 U/L (<78); Potassium 4.3 mmol/L (3.5-5.1); Sodium 129 mmol/L (136-145); Total Protein 7.6 g/dL (6.4-8.2)
[2024-06-14 15:57] LABS: Bilirubin Negative (Negative); Blood Negative (Negative); Clarity Sl Cloudy (Clear); Glucose Negative (Negative); Ketones Trace mg/dL (Negative); Leukocyte Esterase Moderate (Negative); Nitrite Positive (Negative); Specific Gravity 1.015 (1.005-1.025); Urobilinogen 0.2 mg/dL (Up to 0.2); pH 6.5 (5-8)
[2024-06-14] MEDS: Normal Saline - Diluent 50 ML VIAL IJ (16:02)
[2024-06-14] MEDS: Omnipaque 350 MG/ML 100 ML BTL IJ (16:13)
--- NOTE | 2024-06-14 16:14 | DI.CT_ITS ---
Exam(s) CT LUMBAR SPINE RECONS CT ABDOMEN PELVIS W EXAM: CT ABDOMEN PELVIS W CLINICAL HISTORY: mid back discomfort s/p fall, constipation TECHNIQUE: Imaging Protocol: Axial computed tomography images with coronal and sagittal reformatted images were created and reviewed. CONTRAST MATERIAL: Intravenous: Omnipaque 350 Contrast volume:75 mL Oral: No COMPARISON: CT ABD PELVIS WITH CONTRAST from 07/14/[address] BRAIN NECK CTA from 03/02/[address] LUMBAR SPINE RECONS from 06/14/[address] THORACIC SPINE WO from 06/14/2024 FINDINGS: ABDOMEN: Lung Bases: No acute abnormality. Liver: Normal density. There is a 1.5 cm enhancing nodule in the right lobe of the liver. It is hype rdense. This may represent a hemangioma. Portal, Superior Mesenteric, and Splenic Veins: Unremarkable. Gallbladder and Biliary Tract: No radiodense calculus or dilation. Pancreas: Normal density, no abnormal calcifications or inflammatory process. Spleen: Normal. Adrenals: No masses seen. Kidneys: Normal size, contour and axis. No radiodense stones or obstructive uropathy. No masses seen. Abdominal Aorta: Abdominal portion non-dilated. Atherosclerotic calcification is present. Bowel: There is diverticulosis of the colon without evidence of acute diverticulitis. There is no ev idence of bowel obstruction or bowel wall thickening. There is no evidence of appendicitis. Peritoneal Cavity: No ascites, collection or mesenteric inflammatory response. No free air. Lymph Nodes: Within normal limits. Bones: Within normal limits for the patient's age. There is an old L1 compression fracture deformity . Age-appropriate degenerative changes are seen in the lumbar spine. No aggressive osseous lesions are present. Soft Tissues: Unremarkable. PELVIS: Bladder: There is a small amount of free air seen within the urinary bladder. The urinary bladder is otherwise unremarkable. Reproductive Organs: Unremarkable as visualized. Lymph Nodes: Within normal limits. Bones: Within normal limits for the patient's age. Lumbar spine recons: There is an old L1 compression fracture deformity. No acute fracture or subluxa tion is seen in the lumbar spine. Age-appropriate degenerative changes are present. IMPRESSION: 1. No acute abdominal or pelvic process. 2. 1.5 cm enhancing nodule in the right lobe of the liver. This may represent a hemangioma. Nonemer gent CT or MRI of the liver using the hemangioma protocol is recommended for further characterization . 3. Old L1 compression deformity. RADIATION DOSE DELIVERED: 379.4mGy.cm Total DLP DATA REPOSITORY: All CT scans at this facility are submitted to the National Radiology Data Registry (NRDR) Dose Index Registry (DIR) with the [employer] (ACR). RADIATION OPTIMIZATION: All CT scans at this facility use at least one of these dose optimization te chniques: automated exposure control; mA and/or kV adjustment per patient size (includes targeted exa ms where dose is matched to clinical indication); or iterative reconstruction.
--- NOTE | 2024-06-14 16:15 | DI.CT_ITS ---
Exam(s) CT THORACIC SPINE WO EXAM: CT THORACIC SPINE WO CLINICAL HISTORY: mid back pain s/o fall w constipation. TECHNIQUE: Imaging Protocol: Axial computed tomography images with coronal and sagittal reformatted images were created and reviewed. COMPARISON: CT ABD PELVIS WITH CONTRAST from 07/14/2011 FINDINGS: Bones: There is disruption of the cortex of the inferior endplate of T11 and the superior endplate of T12 suspicious for fractures. No significant loss of height of the vertebral bodies is seen. There is an old L1 compression deformity. No other findings to suggest an acute fracture seen. No acute subluxation is seen. The alignment of the spine is normal including the cervicothoracic junction. Ag e-appropriate degenerative changes are present throughout the thoracic spine. Soft tissues: The soft tissues of the chest are unremarkable. No large disk herniations are identifie d. IMPRESSION: 1. Acute fracture involving the inferior endplate of T11 without significant loss of the height of th e vertebral body. 2. Findings suspicious for a fracture of the superior endplate of T12 without significant loss of hei ght of the vertebral body. RADIATION DOSE DELIVERED: 1,152.61mGy.cm Total DLP 1,152.61mGy.cm Total DLP DATA REPOSITORY: All CT scans at this facility are submitted to the National Radiology Data Registry (NRDR) Dose Index Registry (DIR) with the [employer] (ACR). RADIATION OPTIMIZATION: All CT scans at this facility use at least one of these dose optimization te chniques: automated exposure control; mA and/or kV adjustment per patient size (includes targeted exa ms where dose is matched to clinical indication); or iterative reconstruction.
[2024-06-14 16:16] LABS: Bacteria Many HPF (Negative); C & S Indicated? Yes; Casts Negative LPF (Negative); Crystals Negative HPF (Negative); Epithelial Cells Rare HPF (Negative); Mucus Negative (Negative); RBC Negative HPF (0-2); WBC 20-50 HPF (0-5)
[2024-06-14] MEDS: Acetaminophen 325 MG TAB 650 MG PO (16:42)
[2024-06-14] MEDS: Normal Saline 500 ML IV (16:43)
[2024-06-14] MEDS: Lidocaine 5% Patch 1 PATCH TP (16:43)
[2024-06-14] MEDS: cefTRIAXone 1 GM/50 ML BAG IVPB (16:43)
[2024-06-14 17:03] VITALS: BP 169/90; PULSE 77; RESP 18; TEMP 37.1; O2SAT 99
[2024-06-14 17:26] VITALS: BP 170/77; PULSE 75; RESP 18; O2SAT 97
== END 2024-06-14 17:26 | disposition home or self-care (01) ==
PROVIDERS: Nurse Practitioner Family; Emergency Provider Registered Nurse Emergency; PCP Internal Medicine
DX: N39.0 Urinary tract infection, site not specified (principal); S22.088A Other fracture of T11-T12 vertebra, initial encounter for closed fracture; I10 Essential (primary) hypertension; E78.5 Hyperlipidemia, unspecified; Z79.82 Long term (current) use of aspirin; Z87.891 Personal history of nicotine dependence; W01.0XXA Fall on same level from slipping, tripping and stumbling without subsequent striking against object, initial encounter; Y93.01 Activity, walking, marching and hiking; Y92.018 Other place in single-family (private) house as the place of occurrence of the external cause
CPT/HCPCS: 36415; 80053; 83690; 87077; 96365; 99285; 72128; 74177; 81003; 81015; 85025; 87086; 87186; J0696; J3490

== ENCOUNTER 2024-06-19 19:54 | Emergency (ER) | payer MEDICARE, SELFPAY ==
[2024-06-19] VITALS (21 sets, daily range): BP systolic 135–167; BP diastolic 57–82; PULSE 68–87; RESP 18–20; TEMP 36.5–36.8; O2SAT 94–100
--- NOTE | 2024-06-19 20:00 | DI.CT_ITS ---
Exam(s) CT THORACIC LUMBAR SPINE WO EXAM: CT THORACIC LUMBAR SPINE WO CLINICAL HISTORY: Fall, Back pain. TECHNIQUE: Imaging Protocol: Axial computed tomography images with coronal and sagittal reformatted images were created and reviewed. CONTRAST MATERIAL: Intravenous: Omnipaque 350 Contrast volume:structured data in ml Contrast route:I V - Oral: yes / no COMPARISON: CT CT LUMBAR SPINE RECONS from 06/14/[address] THORACIC SPINE WO from 06/14/2024 FINDINGS: THORACIC SPINAL COLUMN: There is an acute or subacute appearing fracture at the anterior inferior asp ect of T11 vertebral body, similar to CT images of 06/14/2024. There is no significant change in the appearance of the fracture site since 06/14/2024. The fracture does not extend into the posterior e lements of this vertebral body and there has been no further height loss of this T11 vertebra. Mild indentation of the posterior aspect of the superior endplate of T12 is also noted, unchanged and cons istent with fracture at this level. There is 3 mm posterior bulging of the posterior superior cortex of T12 vertebral body at this level, slightly more so than previous and slightly compressing the ant erior thecal sac at this level. LUMBOSACRAL SPINAL COLUMN: There is a chronic wedge compression fracture of L1 again noted, unchanged . The amount of retropulsion of the posterior superior cortex at this level is unchanged. No furthe r height loss of this L1 vertebral body. There is also slight indentation of the superior endplate o f L2 vertebral body noted, slightly more so than previous on 06/14/2024. No retropulsion at this lev el. Also noted is chronic disc space narrowing at L3-4, L4-5, and L5-S1 levels. No listhesis. No facet malalignment. IMPRESSION: Unchanged appearance of the acute appearing fracture of the anterior inferior aspect of T11, this unc hanged from images of 06/14/2024. Mild indentation of superior endplate of T12 again noted consistent with fracture at this level. 3 m m posterior bulging of the posterior superior cortex of T12 is noted which mildly compresses the thec al sac at this level. Mild indentation of superior endplate of L2, more so than previous and probably indicating mild compr ession fracture at this level. Wedge compression fracture of L1 again noted, appearing chronic First read by [facility] Final report called by myself to ER physician on 06/20/2024 at 12:02 noon RADIATION DOSE DELIVERED: 1,322.21mGy.cm Total DLP DATA REPOSITORY: All CT scans at this facility are submitted to the National Radiology Data Registry (NRDR) Dose Index Registry (DIR) with the [employer] (ACR). RADIATION OPTIMIZATION: All CT scans at this facility use at least one of these dose optimization te chniques: automated exposure control; mA and/or kV adjustment per patient size (includes targeted exa ms where dose is matched to clinical indication); or iterative reconstruction.
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
[2024-06-19] MEDS: Lidocaine 5% Patch 1 PATCH TP (20:19)
[2024-06-19] MEDS: Acetaminophen 500 MG TAB 1000 MG PO (20:26)
--- NOTE | 2024-06-19 21:35 | DI.VRAD_ITS ---
PROCEDURE INFORMATION: Exam: CT Thoracic Spine Without Contrast Exam date and time: 06/19/2024 8:42 PM Age: 74 years old Clinical indication: Other: Fall, back pain TECHNIQUE: Imaging protocol: Computed tomography of the thoracic spine without contrast. COMPARISON: CT THORACIC SPINE WO 06/14/2024 3:47 PM FINDINGS: Bones/joints: T11: Acute fracture through the anterior aspect of the inferior endplate with mild loss of anterior vertebral height, best demonstrated by images 28-36 of series 28, also seen on the recent comparison exam from June 14, 2024. No additional acute thoracic fracture or gross vertebral malalignment demonstrated. Spinal degenerative changes with small Schmorl's nodes and anterior osteophytes at multiple levels. Discogenic degeneration noted at several lower cervical levels. Soft tissues: No gross soft tissue fluid collection demonstrated. IMPRESSION: 1. Acute fracture through the anterior aspect of the inferior T11 endplate with mild loss of anterior vertebral height, also seen on the recent comparison exam from June 14, 2024. 2. No new acute fracture or gross vertebral malalignment seen in the thoracic region. PROCEDURE INFORMATION: Exam: CT Lumbar Spine Without Contrast Exam date and time: 06/19/2024 8:42 PM Age: 74 years old Clinical indication: Other: Fall, back pain TECHNIQUE: Imaging protocol: Computed tomography of the lumbar spine without contrast. COMPARISON: CT LUMBAR SPINE RECONS 06/14/2024 3:56 PM FINDINGS: Bones/joints: L1: Stable old superior endplate compression fracture with severe loss of anterior vertebral height and apparent fusion across the T12-L1 disc space. Mild superior endplate compression deformity at L2, suspected to be old. No acute fracture or gross vertebral malalignment seen in the lumbar spine. T12-L1: Apparent fusion across the disc space. Mild posterior displacement of the upper aspect of the posterior wall of the L1 vertebral body from the old fracture with mild central canal narrowing. No significant foraminal narrowing. L1-L2: Loss of disc height with a vacuum disc deformity. No focal disc herniation. No significant foraminal narrowing. L2-L3: Loss of disc height. Large anterior osteophytes. Mild central canal narrowing. Small broad-based posterior disc bulge. Mild central canal narrowing. No focal disc herniation. No significant right-sided foraminal narrowing. Mild-moderate left-sided foraminal narrowing with disc material possibly abutting the left L2 nerve root laterally. L3-L4: Loss of disc height with a vacuum disc deformity. Small Schmorl's node in the superior L4 endplate. Anterior osteophytic ridging. Moderate-sized broad-based posterior disc bulge. Mild-moderate central canal narrowing. Moderate bilateral facet arthrosis. Mild right-sided foraminal narrowing. No significant left-sided foraminal narrowing. L4-L5: Loss of disc height with a vacuum disc deformity. Anterior osteophytes. Small broad-based posterior disc bulge with associated osteophytic ridging. Moderate central canal narrowing. Mild-moderate bilateral facet arthrosis. Mild-moderate left sided foraminal narrowing. Moderate right-sided foraminal narrowing with osteophytic material possibly abutting the right L4 nerve root. L5-S1: Loss of posterior disc height. Anterior and posterior osteophytic ridging. No gross focal disc herniation. No central canal narrowing. Moderate bilateral foraminal narrowing with disc and/or osteophytic material probably abutting the L5 nerve roots bilaterally. Moderate-severe bilateral facet arthrosis. Soft tissues: No gross superficial soft tissue fluid collection seen through the lumbar region. IMPRESSION: 1. No acute lumbar fracture or malalignment. 2. Old fractures and degenerative changes, as detailed above. Dictated and Authenticated by: Jori Lua MD. Ordering:MOHAN Hill MD
[2024-06-19] MEDS: Lidocaine 5% Patch 3 PATCH TP (21:48)
== END 2024-06-19 22:00 | disposition home or self-care (01) ==
PROVIDERS: Emergency Provider Registered Nurse Emergency; PCP Internal Medicine
DX: M54.50 Low back pain, unspecified (principal); G89.29 Other chronic pain; S22.080D Wedge compression fracture of T11-T12 vertebra, subsequent encounter for fracture with routine healing; I10 Essential (primary) hypertension; E78.5 Hyperlipidemia, unspecified; X58.XXXD Exposure to other specified factors, subsequent encounter; Z79.82 Long term (current) use of aspirin
CPT/HCPCS: 99285; 72128; 72131; 99284

== ENCOUNTER → 2024-06-26 12:48 | Outpatient (BNVA) | payer MEDICARE, SELFPAY | PROVIDERS: PCP Internal Medicine; Referring Provider Internal Medicine; Visit Provider Psychiatry & Neurology Neurology | DX: G45.9 Transient cerebral ischemic attack, unspecified (principal); R29.6 Repeated falls | CPT/HCPCS: 99214 ==

== ENCOUNTER 2024-07-17 02:22 | Outpatient (CLI) | payer MEDICARE, SELFPAY ==
--- NOTE | 2024-07-17 07:30 | DI.MRI_ITS ---
Exam(s) MR CERVICAL SPINE WO EXAM: MR CERVICAL SPINE WO CLINICAL HISTORY: new falls, ataxial known stenosis,GAIT ABNORMALITY,R29.6,R26.9 TECHNIQUE: Multiplanar multisequence MRI of the cervical spine was performed without intravenous con trast. COMPARISON: CT CT BRAIN NECK CTA from 03/02/2023 FINDINGS: BONES: There are endplate osteophytes in the cervical spine most marked at C4-5 and C5-C6. Interverte bral disc spaces are normal. There is mild straightening of the normal cervical lordosis. Endplate d egenerative signal changes are seen at C5-C6. CERVICAL CORD: Craniovertebral junction is unremarkable. The cervical cord is normal size and signal intensity. SOFT TISSUES: Unremarkable. C2-3: No disc herniation or bulge is identified. No significant central spinal canal or neural forami nal stenosis. C3-4: No disc herniation or bulge is identified. No significant central spinal canal or neural forami nal stenosis C4-5: There is prominence of the osteophyte disc complex compressing the spinal cord and flattening t he anterior aspect. The AP diameter of the spinal canal is 0.8 cm. There is normal signal in the sp inal cord. There is moderate to severe bilateral neural foraminal stenosis left greater than right. C5-6: There is prominence of the osteophyte disc complex at this level causing central spinal canal s tenosis. It is mild in degree. The AP diameter is 0.9 cm. There is bilateral moderately severe nitin ral foraminal stenosis, right greater than left. C6-7: No disc herniation or bulge is identified. No significant central spinal canal or neural forami nal stenosis C7-T1: No disc herniation or bulge is identified. No significant central spinal canal or neural teresa inal stenosis IMPRESSION: 1. Degenerative changes at C4-C5 causing moderate central spinal canal stenosis with flattening of th e anterior aspect of the spinal cord. There is normal signal in the spinal cord. Moderate severe bi lateral neural foraminal stenosis is present, left greater than right. 2. Degenerative changes at C5-C6 causing mild central spinal canal stenosis. There is normal signal in the spinal cord. Moderately severe bilateral neural foraminal stenosis is present, right greater than left. DATA REPOSITORY:
--- NOTE | 2024-07-17 07:30 | DI.MRI_ITS ---
Exam(s) MR BRAIN WO EXAM: MR BRAIN WO CLINICAL HISTORY: new falls and memory issues,GAIT ABNORMALITY,R29.6,R26.9,R41.3 TECHNIQUE: Multiplanar multisequence MRI of the brain was performed. COMPARISON: MR MR BRAIN WO from 04/26/2023 FINDINGS: VENTRICLES AND EXTRA AXIAL SPACES: Normal in size and morphology for the patient's age. The ventricle s appear consistent in size with the sulci. MIDLINE SHIFT: None. CEREBRAL PARENCHYMA: No focus of restricted diffusion to suggest acute infarct. No space-occupying le sonal identified. There are multiple areas of hyperintense signal seen in the white matter on the FLAI R and T2 weighted images most consistent with chronic microvascular ischemic disease. HEMORRHAGE: None. BRAINSTEM/CEREBELLUM: Normal. CALVARIUM: Normal. VISUALIZED PARANASAL SINUSES/MASTOIDS:There is mild mucosal thickening seen in the maxillary sinuses bilaterally. The remaining visualized paranasal sinuses are clear as are the mastoid air cells. [place]: Normal flow void. PITUITARY GLAND: Unremarkable. OTHER FINDINGS: None. IMPRESSION: Age-related cerebral atrophy and chronic microvascular ischemic disease. No evidence of an acute inf arct. DATA REPOSITORY:
== END 2024-07-17 02:42 ==
LOC: DI 02:23
PROVIDERS: PCP Internal Medicine; Visit Provider Psychiatry & Neurology Neurology
DX: M48.02 Spinal stenosis, cervical region (principal); M99.63 Osseous and subluxation stenosis of intervertebral foramina of lumbar region; I25.85 Chronic coronary microvascular dysfunction
CPT/HCPCS: 70551; 72141

== ENCOUNTER → 2024-09-03 11:36 | Outpatient (BNVA) | payer MEDICARE, SELFPAY | PROVIDERS: PCP Internal Medicine; Visit Provider Psychiatry & Neurology Neurology | DX: G45.9 Transient cerebral ischemic attack, unspecified (principal); S22.080D Wedge compression fracture of T11-T12 vertebra, subsequent encounter for fracture with routine healing; X58.XXXD Exposure to other specified factors, subsequent encounter; I10 Essential (primary) hypertension; R73.03 Prediabetes; R29.6 Repeated falls | CPT/HCPCS: 99214 ==

== ENCOUNTER 2024-10-25 10:08 | Outpatient (CLI) | payer MEDICARE, SELFPAY ==
[2024-10-25 11:03] LABS: TSH (W/Ref FT4) 3.36 uIU/mL (0.36-3.74); Vitamin B12 240 pg/mL (193-986)
== END 2024-10-25 10:09 | disposition home or self-care (01) ==
LOC: LBO 10:08
PROVIDERS: PCP Internal Medicine; Visit Provider Psychiatry & Neurology Neurology
DX: R41.3 Other amnesia (principal); G62.9 Polyneuropathy, unspecified
CPT/HCPCS: 36415; 82607; 84443

== ENCOUNTER → 2024-11-06 12:10 | Outpatient (BNVA) | payer MEDICARE, SELFPAY | PROVIDERS: PCP Internal Medicine; Visit Provider Psychiatry & Neurology Neurology | DX: G45.9 Transient cerebral ischemic attack, unspecified (principal); R29.6 Repeated falls; R26.9 Unspecified abnormalities of gait and mobility; R41.3 Other amnesia; E53.8 Deficiency of other specified B group vitamins; R20.0 Anesthesia of skin; I10 Essential (primary) hypertension; E11.9 Type 2 diabetes mellitus without complications | CPT/HCPCS: 99214 ==

== ENCOUNTER 2024-12-06 14:39 | Emergency (ER) | payer OTHER, SELFPAY ==
[2024-12-06 14:41] VITALS: BP 148/46; PULSE 86; RESP 16; TEMP 36.7; O2SAT 95
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
[2024-12-06] MEDS: Ketorolac 15 MG/ML VIAL IVP (15:20)
[2024-12-06] MEDS: Lidocaine 5% Patch 1 PATCH (17:12)
== END 2024-12-06 17:46 | disposition home or self-care (01) ==
PROVIDERS: Emergency Provider Emergency Medicine; PCP Internal Medicine
DX: S16.1XXA Strain of muscle, fascia and tendon at neck level, initial encounter (principal); M54.59 Other low back pain; M54.6 Pain in thoracic spine; V47.5XXA Car driver injured in collision with fixed or stationary object in traffic accident, initial encounter; S09.8XXA Other specified injuries of head, initial encounter
CPT/HCPCS: 99284 ×2; 96374; 70450; 72125; 72128; 72131; J1885

== ENCOUNTER 2024-12-23 15:18 | Emergency (ER) | payer MEDICARE, SELFPAY ==
--- NOTE | 2024-12-23 15:15 | RT.EKG_ITS ---
APPROVED REPORT Exam: Resting ECG Reason for Exam: AMS Patient Location: E HR:98 bpm ECG Measurements Heart Rate 98 AXIS TN 173 P -5 QRSd 93 QRS -14 QT 368 T 11 QTc 470 Conclusion Sinus rhythm...normal P axis, V-rate 60- 99 Left ventricular hypertrophy...multiple voltage criteria No Occlusion PA
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
[2024-12-23 15:20] VITALS: BP 164/67; PULSE 90; RESP 16; TEMP 37; O2SAT 99
[2024-12-23 15:28] VITALS: BP 164/67; PULSE 90; RESP 16; TEMP 37; O2SAT 99
== END 2024-12-23 16:02 | disposition home or self-care (01) ==
PROVIDERS: Emergency Provider Emergency Medicine; PCP Internal Medicine
DX: R20.9 Unspecified disturbances of skin sensation (principal); I10 Essential (primary) hypertension; Z86.79 Personal history of other diseases of the circulatory system; Z59.89 Other problems related to housing and economic circumstances
CPT/HCPCS: 99283 ×2; 93005; 93010

== ENCOUNTER 2025-01-15 15:27 | Outpatient (REF) | payer MEDICARE, SELFPAY ==
[2025-01-15 20:41] LABS: Glucose Negative (Negative)
[2025-01-15 20:47] LABS: C & S Indicated? No; RBC Negative HPF (0-2); WBC Negative HPF (0-5)
== END 2025-01-15 15:28 | disposition home or self-care (01) ==
LOC: LBN 15:27
PROVIDERS: PCP Internal Medicine; Visit Provider Internal Medicine
DX: R41.0 Disorientation, unspecified (principal)
CPT/HCPCS: 81003; 81015

== ENCOUNTER → 2025-02-13 10:54 | Outpatient (BNVA) | payer MEDICARE, SELFPAY | PROVIDERS: PCP Internal Medicine; Visit Provider Psychiatry & Neurology Neurology | DX: G45.9 Transient cerebral ischemic attack, unspecified (principal); R29.6 Repeated falls; R26.9 Unspecified abnormalities of gait and mobility; R41.3 Other amnesia; E53.8 Deficiency of other specified B group vitamins; R20.0 Anesthesia of skin; I10 Essential (primary) hypertension | CPT/HCPCS: 99214 ==

== ENCOUNTER 2025-04-18 13:04 | Outpatient (CLI) | payer MEDICARE, SELFPAY ==
[2025-04-18 10:32] LABS: Abs Immature Grans 0.02 10^3/uL (0.0-0.06); HCT 42.1 % (36.0-46.0); HGB 14.6 g/dL (11.2-15.7); Immature Grans % 0.4 %; MCH 32.6 pg (27.0-33.0); MCHC 34.7 % (32.0-36.0); MCV 94 fL (80-95); MPV 10.8 fL (8.0-11.0); RBC 4.48 10^6/uL (3.93-5.22); RDW 11.6 % (11.7-14.6); RDW-SD 39.6 fL; WBC 5.58 10^3/uL (4.4-10.8)
[2025-04-18 10:50] LABS: Platelet Count 105 10^3/uL (130-400)
[2025-04-18 11:03] LABS: Hemoglobin A1C 5.5 % (<5.7)
[2025-04-18 11:08] LABS: ALT 29 U/L (14-59); AST 25 U/L (15-37); Albumin 4.1 g/dL (3.4-5.0); Alkaline Phosphatase 91 U/L (46-116); Anion Gap 9.6 mmol/L (3-11); BUN 10 mg/dL (7-18); Bilirubin, Total 0.6 mg/dL (0.2-1.0); CO2 25.4 mmol/L (21.0-32.0); Calcium 9.4 mg/dL (8.5-10.1); Chloride 94 mmol/L (98-107); Cholesterol 245 mg/dL (<200); Glucose 112 mg/dL (74-106); HDL Cholesterol 62 mg/dL (>or=50); Potassium 4.7 mmol/L (3.5-5.1); Sodium 129 mmol/L (136-145); TSH (W/Ref FT4) 2.59 uIU/mL (0.36-3.74); Total Protein 7.6 g/dL (6.4-8.2)
[2025-04-18 11:19] LABS: Creatine Kinase 106 U/L (26-192)
== END 2025-04-18 13:05 | disposition home or self-care (01) ==
LOC: LBO 13:05
PROVIDERS: PCP Internal Medicine; Visit Provider Internal Medicine
DX: E78.5 Hyperlipidemia, unspecified (principal)
CPT/HCPCS: 36415; 80053; 80061; 82550; 83036; 84443; 85025